=== PATIENT | female | born 1950 | race African-American/Black ===

== ENCOUNTER 2018-04-04 10:58 | Outpatient (CLI) | payer OTHER, MEDICARE | END 2018-04-04 10:59 | disposition home or self-care (01) | LOC: BICMAMMO 10:58 | PROVIDERS: ATTEND Internal Medicine | DX: Z12.31 Encounter for screening mammogram for malignant neoplasm of breast (principal) | CPT/HCPCS: 77063; 77067 ==

== ENCOUNTER 2018-06-11 15:28 | Inpatient (IN) | payer OTHER, MEDICARE ==
[2018-06-11 18:32] LABS: CKMB 1.6 ng/mL (0-6.6)
[2018-06-11 18:51] VITALS: BMI 44.0
[2018-06-11] MEDS ORDERED: Zolpidem Tartrate 5 MG TAB PO PRN (20:49)
[2018-06-11] MEDS ORDERED: cloNIDine 0.1 MG TAB PO PRN (20:49)
[2018-06-11] MEDS ORDERED: Prevnar 13-Val Conj/PF 0.5 ML SYRINGE IM ONE (21:00)
[2018-06-11] MEDS ORDERED: Acetaminophen 325 MG TAB PO PRN (21:08)
[2018-06-11] MEDS ORDERED: Ondansetron ODT 4 MG TAB PO PRN (21:08)
[2018-06-11] MEDS ORDERED: Ondansetron PF 4 MG/2 ML Vial IVP PRN (21:08)
[2018-06-11] MEDS ORDERED: Calcium Carbonate 500 MG ChewTAB PO PRN (21:08)
[2018-06-11] MEDS ORDERED: Nitroglycerin 0.4 MG TAB (25 Tab Bottle) PO PRN (21:08)
[2018-06-11 21:25] LABS: Troponin I 0.051 ng/mL (< 0.028)
[2018-06-11] MEDS ORDERED: Aspirin 325 MG TAB PO SCH (21:30)
--- NOTE | 2018-06-11 21:49 | HP ---
PRIMARY CARE PHYSICIAN: Itzel Diaz MD. PRIMARY BORING MACHINE SET UP OPERATOR JIG: Dr. Juan Diego Leblanc. CHIEF COMPLAINT: Shortness of breath of 1-week duration with intermittent palpitations. HISTORY OF PRESENT ILLNESS: The patient is a 68-year-old female with coronary artery disease, congestive heart failure, and hyperlipidemia, presented to the emergency room in [place] with shortness of breath of 1-week duration. Her shortness of breath is mainly on minimal exertion. The shortness of breath gets worse on lying down. She also noticed some leg swelling. She has episodes of intermittent palpitations that has been getting more frequent. Five days ago, the episode lasted for approximately 20 minutes. She also had associated lightheadedness, dizziness, and almost passed out. She denies complete loss of consciousness. No nausea, vomiting, or diaphoresis reported. She had some chest tightness during the episodes of shortness of breath and palpitations. In the emergency room at [place], initial vital signs showed respirations of 32, pulse rate of 127, blood pressure of 118/77 with temperature of 99.3. She was found to have atrial fibrillation with rapid ventricular response. She was started on Cardizem drip after a 20 mg bolus. She received 80 mg IV Lasix along with aspirin in the emergency room. She was transferred to this facility for hospital admission. PAST MEDICAL HISTORY: 1. Congestive heart failure, systolic type, ejection fraction 25% in the past. 2. Coronary artery disease. 3. AICD placement. 4. Hypertension. 5. Hyperlipidemia. 6. Paroxysmal atrial fibrillation, not on anticoagulation. 7. History of CT. PAST SURGICAL HISTORY: 1. Coronary stent placement. 2. AICD placement. 3. Hysterectomy. 4. Tubal ligation. 5. Cardiac catheterization and cardiac ablation. ALLERGIES: NO KNOWN DRUG ALLERGIES. CURRENT HOME MEDICATIONS: 1. Lipitor 80 mg at bedtime. 2. Carvedilol 25 mg three times a day. 3. Clonidine 0.1 mg daily as needed for elevated blood pressure. 4. Lasix 80 mg twice a day. 5. Potassium chloride twice a day. 6. Ambien as needed. 7. Multivitamin daily. 8. Vitamin D3 daily. Please note, the patient does not take any antiplatelet agent at home. SOCIAL HISTORY: The patient currently lives at home with her family. She denies any current use of smoking, alcohol, or drug use. She is a former smoker. She makes her own decision with the help of her family. She is full code. FAMILY HISTORY: Positive for hypertension. REVIEW OF SYSTEM: All other review of systems was reviewed and were found negative. PHYSICAL EXAMINATION: VITAL SIGNS: As discussed above. GENERAL: A 68-year-old female in mild respiratory distress while resting. HEENT: Head, atraumatic and normocephalic. Sclerae anicteric. Moist mucous membranes. No oral lesion. NECK: Supple. JVD appears to be elevated. No carotid bruit. LUNGS: Showed bibasilar rales with scattered rhonchi. No wheezing noted. HEART: S1 and S2 present. Irregularly irregular, tachycardic, 2/6 systolic murmur over the mitral area. ABDOMEN: Soft, nontender, obese. Bowel sounds present. Questionable shifting dullness. EXTREMITIES: 1 to 2+ edema in bilateral lower extremity. SKIN: Warm and dry. LYMPH NODES: No palpable lymph nodes in the neck. Peripheral vascular radial pulses palpable bilaterally. MUSCULOSKELETAL: No joint swelling or tenderness. LABORATORY FINDINGS: CBC showed WBC 11.4, hemoglobin 12.5, hematocrit 35, and platelet count of 198. D-dimer was 0.74. Troponin of 0.037. BNP 422. BUN 19, creatinine 1.03, sodium 145, and potassium 3.6. CT angiogram of the chest was negative for pulmonary embolism. There was a lobulated 1.8 cm nodule in the base of the right upper lobe. It has grown approximately 0.5 cm over 3 years. There was also a left adrenal mass. EKG by my review showed paced rhythm with tachycardia. Heart rate was in 120s. Chest x-ray by my review showed pulmonary vascular congestion. IMPRESSION: 1. Acute on chronic systolic heart failure exacerbation, probably precipitated by underlying atrial fibrillation with rapid ventricular response, ACC stage C. 2. Coronary artery disease, status post stent placement and myocardial infarction per the patient report. 3. Hypertension. 4. Hyperlipidemia. 5. Morbid obesity with a BMI of 44. 6. Elevated troponin, secondary to demand ischemia. 7. Chronic kidney disease stage 2. 8. Former smoker. 9. Status post automatic implantable cardioverter-defibrillator. PLAN: The patient will be monitored in the telemetry unit. We will continue the patient on Cardizem drip. Her blood pressure is currently on the lower side. We will get serial troponins. Cardiology consultation in a.m. We will get AICD check. Echocardiogram will be done. Anticoagulation was discussed with the patient. She is currently refusing any form of anticoagulation except for aspirin. She understands the consequences of not taking anticoagulation. She will discuss further with Dr. Leblanc in a.m. The patient will require 2 to 3 days for stabilization. Job ID: [id number]
[2018-06-11] MEDS ORDERED: Atorvastatin Calcium 40 MG TAB PO SCH (22:00)
[2018-06-12 05:27] LABS: Albumin 3.5 g/dL (3.4-4.8); Anion Gap 12 mmol/L (10-20); BUN (Urea Nitrogen) 14 mg/dL (9.8-20.1); BUN/Creatinine Ratio 16.28; Calc. Creatinine Clearance 105 mL/min (70-130); Calcium 8.9 mg/dL (7.8-10.44); Carbon Dioxide 29 mmol/L (23-31); Chloride 106 mmol/L (98-107); Estimated GFR-MDRD 79; Glucose 126 mg/dL (80-115); Magnesium 2.1 mg/dL (1.6-2.6); Phosphorus 3.5 mg/dL (2.3-4.7); Potassium 3.1 mmol/L (3.5-5.1); Sodium 144 mmol/L (136-145)
[2018-06-12] MEDS: Furosemide 40 MG/4 ML VIAL SLOW IVP SCH ×2 (05:45→14:32)
[2018-06-12] MEDS: Diltiazem 125 MG in Sodium Chloride 0.9% 100 ML IVPB SCH (05:46)
[2018-06-12] MEDS: Carvedilol 6.25 MG TAB PO SCH ×2 (07:45→17:18)
[2018-06-12] MEDS: Potassium Chloride 20 MEQ TAB PO SCH ×4 (07:45→20:50)
[2018-06-12] MEDS ORDERED: Potassium Chloride 20 MEQ TAB PO SCH (08:00)
[2018-06-12] MEDS: Aspirin 325 MG TAB PO SCH (08:44)
[2018-06-12] MEDS: Multivitamin W/ Minerals 1 TAB PO SCH (08:44)
[2018-06-12] MEDS ORDERED: Enoxaparin Sodium 40 MG/0.4 ML SYRINGE SC SCH (09:00)
--- NOTE | 2018-06-12 12:34 | PDOC.PN ---
- Subjective Encounter Start Date: 06/12/18 Encounter Start Time: 07:30 Patient seen and examined for CHF exacerbation/Afib with RVR. On Cardizem drip. SOB improving. No CP. No new complaints. No overnight events - Objective Resuscitation Status - Order Detail: 06/11/18 21:08 Resuscitation Status Routine Resuscitation Status: FULL: Full Resuscitation MAR Reviewed: Yes Vital Signs & Weight: Vital Signs (12 hours) Temp Pulse Resp BP BP BP Pulse Ox 06/12/18 08:20 96 06/12/18 07:45 111/59 L 06/12/18 07:16 98.4 F 122 H 18 111/59 L 96 06/12/18 04:38 98.1 F 103 H 18 110/62 93 L Weight Weight 241 lb 8 oz I&O: 06/11/18 06/12/18 06/13/18 06:59 06:59 06:59 Intake Total 360 Output Total 1000 750 Balance -640 -750 Result Diagrams: 06/12/18 04:36 EKG Reviewed by me: Yes (Tele Afib) Phys Exam - Physical Examination Constitutional: NAD Respiratory: no wheezing, no rhonchi Rales at bases Cardiovascular: no rub, irregular Gastrointestinal: soft, non-tender, positive bowel sounds Musculoskeletal: edema present Neurological: moves all 4 limbs Psychiatric: A&O x 3 Dx/Plan - Plan DVT proph w/lovenox, DVT proph w/SCDs 1. Acute on chronic systolic heart failure exacerbation/Atrial fibrillation with rapid ventricular response. 2. Coronary artery disease, s/p stent & UT. 3. Hypertension. 4. Hyperlipidemia. 5. Morbid obesity with a BMI of 44. 6. Elevated troponin, secondary to demand ischemia. 7. Chronic kidney disease stage 2. 8. Former smoker. 9. Status post automatic implantable cardioverter-defibrillator. PLAN: AICD check Cont Coreg at 6.25 mg BID Cont Lasix Cont Cardizem drip AM labs Await Echo Cont other meds as below Review of Systems - Review of Systems Constitutional: negative: fever, chills, sweats, weakness, malaise, other Cardiovascular: edema. negative: chest pain, palpitations, orthopnea, paroxysmal nocturnal dyspnea, light headedness, other Gastrointestinal: negative: Nausea, Vomiting, Abdominal Pain, Diarrhea, Constipation, Melena, Hematochezia, Other - Medications/Allergies Allergies/Adverse Reactions: Allergies Allergy/AdvReac Type Severity Reaction Status Date / Time No Known Allergies Allergy Verified 10/26/14 15:41 Medications: Current Medications Acetaminophen (Tylenol) 650 mg PO Q4H PRN PRN Reason: Headache/Fever/Mild Pain (1-3) Aspirin (Aspirin) 325 mg PO DAILY [facility] Last Admin: 06/12/18 08:44 Dose: 325 mg Atorvastatin Calcium (Lipitor) 80 mg PO HS [facility] Last Admin: 06/11/18 21:54 Dose: 80 mg Calcium Carbonate (Tums) 1,000 mg PO Q4H PRN PRN Reason: Heartburn or Indigestion Carvedilol (Coreg) 6.25 mg PO BID-[facility] Last Admin: 06/12/18 07:45 Dose: 6.25 mg Clonidine (Catapres) 0.1 mg PO DAILY PRN PRN Reason: SBP Greater Than 180 Enoxaparin Sodium (Lovenox) 40 mg SC 0900 [facility] Last Admin: 06/12/18 08:44 Dose: 40 mg Furosemide (Lasix) 40 mg SLOW IVP 0600,1400 [facility] Last Admin: 06/12/18 05:45 Dose: 40 mg Diltiazem HCl 125 mg/ Sodium (Chloride) 125 mls @ 2.5 mls/hr IVPB INF [facility]; Protocol Last Admin: 06/12/18 05:46 Dose: 125 mls Iron/Minerals/Multivitamins (Theragran M) 1 tab PO DAILY [facility] Last Admin: 06/12/18 08:44 Dose: 1 tab Nitroglycerin (Nitrostat) 0.4 mg PO Q5MIN PRN PRN Reason: Chest Pain Ondansetron HCl (Zofran Odt) 4 mg PO Q6H PRN PRN Reason: Nausea/Vomiting Ondansetron HCl (Zofran) 4 mg IVP Q6H PRN PRN Reason: Nausea/Vomiting Potassium Chloride (K-Dur) 20 meq PO QID-[facility] Last Admin: 06/12/18 11:46 Dose: 20 meq Sodium Chloride (Flush - Normal Saline) 10 ml IVF Q12HR [facility] Last Admin: 06/12/18 08:45 Dose: 10 ml Sodium Chloride (Flush - Normal Saline) 10 ml IVF PRN PRN PRN Reason: Saline Flush Zolpidem Tartrate (Ambien) 10 mg PO HSPRN PRN PRN Reason: Insomnia
[2018-06-12] MEDS ORDERED: Digoxin 0.5 MG/2 ML AMP SLOW IVP SCH (19:15)
[2018-06-12] MEDS ORDERED: Amiodarone 150 MG, Admixture Fee 1 EACH in Dextrose 5% in Water 100 ML IVPB SCH (19:30)
[2018-06-12] MEDS: Enoxaparin Sodium 120 MG/0.8 ML SYRINGE SC SCH (20:50)
[2018-06-12] MEDS: Atorvastatin Calcium 40 MG TAB PO SCH (20:57)
[2018-06-12] MEDS ORDERED: Atorvastatin Calcium 40 MG TAB PO SCH (21:00)
[2018-06-12] MEDS: Amiodarone 450 MG in Dextrose 5% in Water 250 ML IVPB SCH (21:42)
[2018-06-12 21:53] LABS: Magnesium 2.2 mg/dL (1.6-2.6); Potassium 3.9 mmol/L (3.5-5.1)
[2018-06-12 22:00] LABS: ALT (SGPT) 15 U/L (8-55); AST (SGOT) 16 U/L (5-34); Albumin 3.9 g/dL (3.4-4.8); Alkaline Phosphatase 85 U/L (40-150); Bilirubin, Direct 0.2 mg/dL (0.1-0.3); Bilirubin, Total 0.5 mg/dL (0.2-1.2); Protein, Total 7.5 g/dL (6.0-8.3)
--- NOTE | 2018-06-12 23:57 | CON ---
DATE OF CONSULTATION: HISTORY OF PRESENT ILLNESS: Beatriz Bryan is a pleasant 68-year-old black female, I initially evaluated in July 1990 for atypical chest discomfort. She underwent treadmill testing at [facility] and apparently that treadmill was abnormal. She was then transferred to [facility], underwent catheterization. She had minimal plaquing in the proximal right coronary artery, but otherwise, unremarkable coronary arteries and also normal left ventricular function. I did not see her again until July 2006 when she would have episodes where pulse would "quicken" and she would lose energy and feel her heart beating very rapidly. This lasted approximately 30 minutes. She stated that she had that type of arrhythmias since her 30s. Her sister would count her heartbeat in the past to be approximately 200 per minute. She would have chest pressure with the increased heart rate. With Valsalva maneuver, the tachycardia would stop. She underwent Holter monitoring, which revealed a six-beat run of supraventricular tachycardia with a rate of 136 per minute. An echo revealed ejection fraction of 60% to 65% with mild mitral regurgitation, mild pulmonic regurgitation, mitral annular calcification and trace tricuspid regurgitation. She continued to have tachycardia almost on a daily basis, lasting 1 minute despite being on verapamil. She was referred for electrophysiology study. She was found to have no re-entrant atrial or ventricular tachyarrhythmias. She had nonsustained ectopic atrial tachycardia, left bundle-branch block with aberrancy after atropine and isoproterenol. She was placed on propafenone and symptomatically improved. In June 2007, she was having 2 to 3 episodes lasting 5 seconds for 3 months prior to that visit. In April 2008, she complained of chest pressure across her chest radiating into her arms whenever she tried to walk associated with shortness of breath, which had been occurring for 2 months. She would have her usual palpitations lasting 10 seconds. On EKG, she had left bundle-branch block. She underwent adenosine Cardiolite testing, which was probably normal without definite evidence of ischemia or fixed defect. In May 2008, she continued to have palpitations and underwent another Holter monitor, which did not reveal any evidence of tachycardia. In August 2008, she returned to the office complaining that her heart rate was rapid and that she would have episodes every other day, lasting less than a minute. She had an episode in August 2008, it lasted 20 minutes and she had central chest pressure and right arm pressure, but no shortness of breath. In the office, she was found to have supraventricular tachycardia with the rate of 147 per minute with left bundle-branch block pattern. She was hospitalized, placed on Cardizem drip. She had only been taking the propafenone 150 mg b.i.d. and not t.i.d. LDL was also 170 and Lipitor was started. She was seen by Dr. Romulo Diaz, for consideration of ablation. She was not seen again until July 2010. With walking, she would have right arm and chest discomfort lasting 5 to 10 minutes, relieved with rest. Echo revealed severe left ventricular dysfunction with ejection fraction of 20% to 25% with septal wall dyskinesis, moderate mitral regurgitation, mitral annular calcification, diastolic dysfunction, and mild tricuspid regurgitation. This is a dramatic change from her previous echo in May 2008. At that time, her ejection fraction was 60% to 65%. Verapamil was discontinued, she was placed on metoprolol 100 daily. She underwent Lexiscan Cardiolite testing, which revealed evidence of moderate fixed defect in the proximal and distal inferior wall and mild fixed defect in the anterior wall, but no evidence of ischemia. After changing to metoprolol, she had decreased frequency of her episodes of chest discomfort and would require more exertion before she would have the discomfort, but still with walking or sweeping the floor, she would have right chest, right shoulder discomfort, lasting 20 minutes almost daily. It is recommended she undergo catheterization. She was found to have severe left ventricular dysfunction with ejection fraction of 20% to 25%. There was a 40% to 50% mid LAD, 30% and 70% proximal stenosis with ejection fraction of 20% to 25%. There was a 40% to 50% mid LAD stenosis. The circumflex had a 30% and 70% proximal stenosis and an 80% mid stenosis. Right coronary artery was small with a 20% proximal stenosis, 60% mid stenosis. She underwent placement of a PROMUS 3.0 x 20 mm stent, 3.0 x 28 and 3.0 x 8 from the proximal to the mid circumflex. With balloon inflation, she had recurrence of her chest and right arm and shoulder discomfort like she had been having at home. Her LDL was 142, and she again was started on Lipitor, which she had been previously taking, but stopped. With the left ventricular dysfunction, it is felt that propafenone for her atrial tachycardia needed to be discontinued. She was seen by Dr. Samaniego and loaded with amiodarone. During that hospitalization, metoprolol was changed to carvedilol. Hydrochlorothiazide was discontinued and she was placed on furosemide with improvement in her lower extremity edema. In October and December 2010, she was seen in the office. Echo in December 2010 revealed ejection fraction of 15% to 20%. She was referred to [facility] for a biventricular ICD. In January 2011, she presented to the emergency room in [place] with increased respiratory distress and worsening shortness of breath for one week prior to that. PH was 7.29, pCO2 57.4, pO2 89.3. She was sedated, intubated, and transferred. She had undergone chest CT, which revealed no pulmonary embolism. However, did have evidence of pulmonary edema and bilateral lower lobe consolidation probably representing pneumonia. She was diuresed and eventually extubated. She underwent placement of a biventricular ICD. She was ultimately discharged after only 6 days. In December 2011, she was seen in the office and stated that she had been noncompliant with the evening Lasix dose at least 2 times per week. At that time, her blood pressure was 150-160 systolic at home. Carvedilol dose was increased. She was admitted in December 2011 with disorientation and increased shortness of breath. Blood pressure was between 200 and 250 when she arrived at the [place] [facility]. Topical nitrates were placed; pH was 7.24, pCO2 76, pO2 456. CPAP was placed. It appeared that she had flash pulmonary edema. Cardiac enzymes were unremarkable. Echo revealed ejection fraction of 20% to 25% with evidence for diastolic dysfunction, left ventricular enlargement, defibrillator wire on the right side of the heart, moderate tricuspid regurgitation, moderate mitral regurgitation. She underwent cardiac catheterization, which revealed severe left ventricular dysfunction with ejection fraction of 20% to 25%. There was a 30% mid LAD and continued to have excellent results from the stents placed in the circumflex. There was a 20% proximal circumflex lesion before the stents. Right coronary was small with 20% proximal lesion, 60% and 70% mid lesions. Renal arteries revealed 30% stenosis. She had dual left renal artery, both of which had approximately 20% stenosis. It was felt that the flash pulmonary edema was probably due to her [id number] hypertension. Carvedilol dose was gradually increased. She was diuresed. She had a cough, which may have been due to lisinopril. ICD continued to function normally at that time. She has been followed in the office with gradual improvement in her left ventricular function over time with biventricular pacing. In October 2013, she was admitted with increased shortness of breath after eating a lot of salt, drinking a lot of fluid on the day of admission. Cardiac enzymes were unremarkable. She has not been hospitalized here since that time. She has continued to be followed here in the office with gradual improvement in her ejection fraction. Her last echocardiogram was in January 2018. She had ejection fraction of 55% to 60% with mild left atrial enlargement, ICD wire in the right ventricle, mild mitral regurgitation, mitral valve inflow pattern consistent with diastolic dysfunction, aortic valvular sclerosis and mild tricuspid regurgitation. She states that recently her blood pressure has been low and Dr. Diaz has discontinued the Diovan and also carvedilol was reduced from 50 mg b.i.d. to 25 mg t.i.d. She then began to notice on June 06 that showed increasing shortness of breath and would feel her heart beating very rapidly. She ultimately came to the emergency room, was found to be in atrial fibrillation, had been placed on a Cardizem drip, but continues to have fast rates. She denied any chest discomfort. PAST MEDICAL HISTORY: Hypertension, hypercholesterolemia (very noncompliant with statins in the past and she is now very noncompliant with the Zetia), diastolic dysfunction. No history of diabetes. MEDICATIONS: 1. Carvedilol 25 mg t.i.d. 2. Atorvastatin 80 at bedtime. 3. Clonidine 0.1 mg p.r.n. 4. Lasix 80 mg b.i.d. 5. Multivitamin daily. 6. KCl 20 mEq daily. 7. Ambien 10 mg at bedtime p.r.n. ALLERGIES: NONE. PAST SURGICAL HISTORY: Operation; ICD placement. SOCIAL HISTORY: Short-term mcc in the past. She rarely drinks alcohol. She smoked in the past. FAMILY HISTORY: Father had myocardial infarction at age 68. REVIEW OF SYSTEMS: A 12-point review of systems unremarkable except as noted above. PHYSICAL EXAMINATION: VITAL SIGNS: Blood pressure 129/58, pulse of 127. HEENT: PERRL. NECK: Supple. CHEST: Clear. CARDIAC: S1 and S2 normal without any S3, S4, or murmurs. The rhythm is irregularly irregular with fast rate. ABDOMEN: Obese. Normal bowel sounds without tenderness or organomegaly. EXTREMITIES: Revealed no clubbing, cyanosis, or edema. NEUROLOGICAL: Grossly intact. SKIN: Warm and dry. LABORATORY DATA: EKG reveals atrial fibrillation with occasional paced beats. Chest x-ray revealed mild congestive heart failure. She underwent CT angiogram of the thorax, which revealed no evidence of pulmonary embolism. Hemoglobin 12.5, hematocrit 35.0, white count 11,400, platelets 198,000. She has always had low red blood cell indices. D-dimer 0.74. Troponin I is up to 0.051. TSH is normal. BNP 422.2. Sodium 144, potassium 3.1, chloride 106, carbon dioxide 29, BUN 14, creatinine 0.86. Echocardiogram revealed ejection fraction of 35% to 40% with ICD wire in the right ventricle, mild left atrial enlargement, moderate mitral regurgitation, aortic valvular sclerosis and severe tricuspid regurgitation. IMPRESSION: 1. Recurrence of atrial fibrillation. She had been on amiodarone in the past; however, this was stopped 3 or 4 years ago. 2. Hypotension recently with Diovan being discontinued and carvedilol dose being reduced. 3. Ischemic cardiomyopathy with ejection fraction improving from 20% to 25% to 55% to 60% with biventricular pacing. 4. Status post biventricular ICD placement. 5. Coronary artery disease, status post stent placement to the right coronary artery in September 2010. 6. Diastolic dysfunction. 7. Hypertension. 8. Hypercholesterolemia with the patient noncompliant with Zetia. 9. Former smoker. 10. Peripheral vascular disease. 11. Hyperglycemia. PLAN: Situation discussed with the patient. She will be given intravenous digoxin to slow her rate as well as being started on intravenous amiodarone. Lovenox 1 mg/kg b.i.d. will probably be started and she will eventually be transitioned to oral anticoagulants. The main problem that she has right now is that her rate is faster than a programmed rate of the pacemaker and so she has not received the benefits of biventricular pacing when she is in atrial fibrillation with this fast rate. The rate will be slowed and hopefully, she will return to sinus rhythm. Job ID: [id number]
[2018-06-13] MEDS ORDERED: Digoxin 0.5 MG/2 ML AMP SLOW IVP SCH ×2 (02:00→19:15)
[2018-06-13 06:00] LABS: Albumin 3.8 g/dL (3.4-4.8); Anion Gap 10 mmol/L (10-20); BUN (Urea Nitrogen) 13 mg/dL (9.8-20.1); BUN/Creatinine Ratio 13.54; Calc. Creatinine Clearance 94 mL/min (70-130); Calcium 9.4 mg/dL (7.8-10.44); Carbon Dioxide 30 mmol/L (23-31); Cardiac Risk 4.3 (Less than 4.5); Chloride 105 mmol/L (98-107); Cholesterol 158 mg/dl (< 200 Desired); Estimated GFR-MDRD 70; Glucose 129 mg/dL (80-115); HDL Cholesterol 37 mg/dL (>60 Neg Risk); Iron 25 ug/dL (50-170); Iron Binding Capacity, Total 208 mcg/dL (265-497); LDL Cholesterol, Calculated 104 mg/dL; Magnesium 2.2 mg/dL (1.6-2.6); Phosphorus 3.5 mg/dL (2.3-4.7); Potassium 3.9 mmol/L (3.5-5.1); Sodium 141 mmol/L (136-145); Triglycerides 85 mg/dL (Less than 150)
[2018-06-13 06:07] LABS: #Basophils 0.1 thou/uL (0.0-0.2); #Eosinphils 0.2 thou/uL (0.0-0.7); #Lymphocytes 2.1 thou/uL (1.20-3.40); #Monocytes 1.1 thou/uL (0.11-0.59); #Neutrophils 10.6 thou/uL (1.40-6.50); %Basophils 0.4 % (0.0-1.0); %Eosinophils 1.2 % (0.0-10.0); %Monocytes 7.9 % (0.0-10.0); %Neutrophils 75.4 % (42.0-75.0); Hemoglobin 12.8 g/dL (12.0-16.0); MDiff Complete? YES; Mean Corpuscular HGB CONC 33.1 g/dL (32.0-36.0); Mean Corpuscular Hemoglobin 24.4 pg (27.0-31.0); Mean Corpuscular Volume 73.8 fL (78.0-98.0); Mean Platelet Volume 10.2 fL (7.4-10.4); Microcytosis SLIGHT = 6-15 cells (100X) (0-5/hpf); Platelet Count 198 thou/uL (130-400); RBC Distribution Width 15.1 % (11.5-14.5); Red Blood Cell (RBC) Count 5.24 mill/uL (4.20-5.40)
[2018-06-13] MEDS: Furosemide 40 MG/4 ML VIAL SLOW IVP SCH ×2 (06:19→14:11)
[2018-06-13] MEDS: Amiodarone 450 MG in Dextrose 5% in Water 250 ML IVPB SCH (08:05)
[2018-06-13] MEDS: Carvedilol 6.25 MG TAB PO SCH ×2 (08:07→17:43)
[2018-06-13] MEDS: Aspirin 325 MG TAB PO SCH (08:07)
[2018-06-13] MEDS: Multivitamin W/ Minerals 1 TAB PO SCH (08:07)
[2018-06-13] MEDS: Potassium Chloride 20 MEQ TAB PO SCH ×4 (08:07→20:51)
[2018-06-13] MEDS: Enoxaparin Sodium 120 MG/0.8 ML SYRINGE SC SCH (08:07)
--- NOTE | 2018-06-13 19:20 | PDOC.PN ---
- Subjective Encounter Start Date: 06/13/18 Encounter Start Time: 09:30 - Objective Resuscitation Status - Order Detail: 06/11/18 21:08 Resuscitation Status Routine Resuscitation Status: FULL: Full Resuscitation MAR Reviewed: Yes Vital Signs & Weight: Vital Signs (12 hours) Temp Pulse Resp BP BP BP Pulse Ox 06/13/18 17:43 159/71 H 06/13/18 16:00 98.9 F 119 H 19 141/84 H 93 L 06/13/18 12:00 99.4 F 103 H 18 138/63 93 L 06/13/18 08:07 159/71 H 06/13/18 08:00 99.7 F H 114 H 18 159/71 H 93 L Weight Weight 235 lb 14.4 oz I&O: 06/12/18 06/13/18 06/14/18 06:59 06:59 06:59 Intake Total 360 650 480 Output Total 1000 1650 Balance -640 -1000 480 Result Diagrams: 06/13/18 05:27 06/13/18 05:27 EKG Reviewed by me: Yes (Tele Paced/Afib with RVR) Phys Exam - Physical Examination Constitutional: NAD Respiratory: no wheezing, no rhonchi Cardiovascular: no rub, irregular Gastrointestinal: soft, non-tender, positive bowel sounds Musculoskeletal: edema present Neurological: moves all 4 limbs Dx/Plan - Plan DVT proph w/lovenox, DVT proph w/SCDs 1. Acute on chronic systolic heart failure exacerbation/Atrial fibrillation with rapid ventricular response. 2. Coronary artery disease, s/p stent & [place]. 3. Hypertension. 4. Hyperlipidemia. 5. Morbid obesity with a BMI of 44. 6. Elevated troponin, secondary to demand ischemia. 7. Chronic kidney disease stage 2. 8. Former smoker. 9. Status post AICD. PLAN: On Cardizem/Amiodarone drip Cont Coreg at 6.25 mg BID Cont Digoxin Cont IV Lasix Cont Cardizem drip AM labs On Anticoag - Patient understands the risk associated with anticoagulation Cont other meds as below Review of Systems - Review of Systems Respiratory: negative: Cough, Dry, Shortness of Breath, Hemoptysis, SOB with Excertion, Pleuritic Pain, Sputum, Wheezing Cardiovascular: negative: chest pain, palpitations, orthopnea, paroxysmal nocturnal dyspnea, edema, light headedness, other Gastrointestinal: negative: Nausea, Vomiting, Abdominal Pain, Diarrhea, Constipation, Melena, Hematochezia, Other - Medications/Allergies Allergies/Adverse Reactions: Allergies Allergy/AdvReac Type Severity Reaction Status Date / Time No Known Allergies Allergy Verified 10/26/14 15:41 Medications: Current Medications Acetaminophen (Tylenol) 650 mg PO Q4H PRN PRN Reason: Headache/Fever/Mild Pain (1-3) Last Admin: 06/12/18 17:42 Dose: 650 mg Apixaban (Eliquis) 5 mg PO BID [facility] Aspirin (Ecotrin) 81 mg PO DAILY [facility] Atorvastatin Calcium (Lipitor) 80 mg PO [facility] Last Admin: 06/12/18 20:57 Dose: 80 mg Calcium Carbonate (Tums) 1,000 mg PO Q4H PRN PRN Reason: Heartburn or Indigestion Carvedilol (Coreg) 6.25 mg PO BID-[facility] Last Admin: 06/13/18 17:43 Dose: 6.25 mg Clonidine (Catapres) 0.1 mg PO DAILY PRN PRN Reason: SBP Greater Than 180 Digoxin (Lanoxin) 0.25 mg SLOW IVP NOW [facility] Stop: 06/13/18 21:15 Digoxin (Lanoxin) 0.25 mg PO DAILY [facility] Enoxaparin Sodium (Lovenox) 110 mg SC 0900,2100 [facility] Stop: 06/13/18 23:59 Furosemide (Lasix) 40 mg SLOW IVP 0600,1400 [facility] Last Admin: 06/13/18 14:11 Dose: 40 mg Diltiazem HCl 125 mg/ Sodium (Chloride) 125 mls @ 2.5 mls/hr IVPB INF [facility]; Protocol Last Admin: 06/12/18 05:46 Dose: 125 mls Amiodarone HCl 450 mg/ (Dextrose/Water) 259 mls @ 0 mls/hr IVPB INF [facility]; Protocol Last Admin: 06/13/18 08:05 Dose: 16.7 mls Iron/Minerals/Multivitamins (Theragran M) 1 tab PO DAILY [facility] Last Admin: 06/13/18 08:07 Dose: 1 tab Nitroglycerin (Nitrostat) 0.4 mg PO Q5MIN PRN PRN Reason: Chest Pain Ondansetron HCl (Zofran Odt) 4 mg PO Q6H PRN PRN Reason: Nausea/Vomiting Ondansetron HCl (Zofran) 4 mg IVP Q6H PRN PRN Reason: Nausea/Vomiting Potassium Chloride (K-Dur) 20 meq PO QID-[facility] Last Admin: 06/13/18 17:43 Dose: 20 meq Sodium Chloride (Flush - Normal Saline) 10 ml IVF Q12HR [facility] Last Admin: 06/13/18 10:36 Dose: Not Given Sodium Chloride (Flush - Normal Saline) 10 ml IVF PRN PRN PRN Reason: Saline Flush Zolpidem Tartrate (Ambien) 10 mg PO HSPRN PRN PRN Reason: Insomnia
[2018-06-13] MEDS: Atorvastatin Calcium 40 MG TAB PO SCH (20:51)
[2018-06-13] MEDS: Apixaban 5 MG TAB PO SCH (20:52)
[2018-06-13] MEDS ORDERED: Enoxaparin Sodium 120 MG/0.8 ML SYRINGE SC SCH (21:00)
[2018-06-14] MEDS: Amiodarone 450 MG in Dextrose 5% in Water 250 ML IVPB SCH ×2 (00:34→18:09)
[2018-06-14] MEDS: Furosemide 40 MG/4 ML VIAL SLOW IVP SCH ×2 (05:32→14:34)
[2018-06-14 06:55] LABS: Hemoglobin 13.7 g/dL (12.0-16.0); Platelet Count 229 thou/uL (130-400)
[2018-06-14 07:17] LABS: Albumin 4.1 g/dL (3.4-4.8); Anion Gap 15 mmol/L (10-20); BUN (Urea Nitrogen) 14 mg/dL (9.8-20.1); BUN/Creatinine Ratio 13.21; Calc. Creatinine Clearance 82 mL/min (70-130); Calcium 9.7 mg/dL (7.8-10.44); Carbon Dioxide 27 mmol/L (23-31); Chloride 106 mmol/L (98-107); Estimated GFR-MDRD 62; Glucose 126 mg/dL (80-115); Magnesium 2.3 mg/dL (1.6-2.6); Phosphorus 3.3 mg/dL (2.3-4.7); Potassium 3.9 mmol/L (3.5-5.1); Sodium 144 mmol/L (136-145)
[2018-06-14] MEDS: Multivitamin W/ Minerals 1 TAB PO SCH (08:16)
[2018-06-14] MEDS: Aspirin 81 mg Enteric Coated Tablet PO SCH (08:16)
[2018-06-14] MEDS: Apixaban 5 MG TAB PO SCH ×2 (08:16→19:55)
[2018-06-14] MEDS: Carvedilol 6.25 MG TAB PO SCH ×2 (08:16→16:15)
[2018-06-14] MEDS: Potassium Chloride 20 MEQ TAB PO SCH ×4 (08:16→19:55)
[2018-06-14] MEDS: Digoxin 0.25 MG TAB PO SCH (08:16)
--- NOTE | 2018-06-14 13:30 | PDOC.PN ---
- Subjective Encounter Start Date: 06/14/18 Encounter Start Time: 10:00 Patient seen and examined for CHF. On Amiodarone/Cardizem drip. SOB improving. Intermittent palpitations. No new complaints. No overnight events - Objective Resuscitation Status - Order Detail: 06/11/18 21:08 Resuscitation Status Routine Resuscitation Status: FULL: Full Resuscitation MAR Reviewed: Yes Vital Signs & Weight: Vital Signs (12 hours) Temp Pulse Pulse Pulse Resp BP BP 06/14/18 11:59 97.5 F L 121 H 19 06/14/18 10:18 99 124 H 166/73 H 117/67 06/14/18 08:16 06/14/18 07:08 98.2 F 113 H 17 06/14/18 04:00 98.2 F 113 H 20 BP BP Pulse Ox Pulse Ox Pulse Ox 06/14/18 11:59 142/72 H 95 06/14/18 10:18 95 98 06/14/18 08:16 95 06/14/18 07:08 146/81 H 95 06/14/18 04:00 156/74 H 94 L Weight Weight 230 lb 14.4 oz I&O: 06/13/18 06/14/18 06/15/18 06:59 06:59 06:59 Intake Total 650 830.4 Output Total 1650 1000 Balance -1000 -169.6 Result Diagrams: 06/14/18 06:17 06/14/18 06:17 EKG Reviewed by me: Yes (Tele Aflutter) Phys Exam - Physical Examination Constitutional: NAD Respiratory: no wheezing, no rhonchi few rales at bases Cardiovascular: no rub, irregular Gastrointestinal: soft, non-tender, positive bowel sounds Musculoskeletal: edema present (improving) Neurological: non-focal, moves all 4 limbs Psychiatric: A&O x 3 Dx/Plan - Plan 1. Acute on chronic systolic heart failure exacerbation/Atrial flutter-fib with RVR. 2. Coronary artery disease, s/p stent & [place] in the past. 3. Hypertension. 4. Hyperlipidemia. 5. Morbid obesity with a BMI of 44. 6. Elevated troponin, secondary to demand ischemia. 7. Chronic kidney disease stage 2. 8. Former smoker. 9. Status post AICD. PLAN: Cont Cardizem/Amiodarone drip On Eliquis Cont Coreg/Digoxin Cont IV Lasix Cont other medications as below AM labs Review of Systems - Review of Systems Respiratory: negative: Cough, Dry, Shortness of Breath, Hemoptysis, SOB with Excertion, Pleuritic Pain, Sputum, Wheezing Cardiovascular: negative: chest pain, palpitations, orthopnea, paroxysmal nocturnal dyspnea, edema, light headedness, other - Medications/Allergies Allergies/Adverse Reactions: Allergies Allergy/AdvReac Type Severity Reaction Status Date / Time No Known Allergies Allergy Verified 10/26/14 15:41 Medications: Current Medications Acetaminophen (Tylenol) 650 mg PO Q4H PRN PRN Reason: Headache/Fever/Mild Pain (1-3) Last Admin: 06/12/18 17:42 Dose: 650 mg Apixaban (Eliquis) 5 mg PO BID [facility] Last Admin: 06/14/18 08:16 Dose: 5 mg Aspirin (Ecotrin) 81 mg PO DAILY [facility] Last Admin: 06/14/18 08:16 Dose: 81 mg Atorvastatin Calcium (Lipitor) 80 mg PO HS [facility] Last Admin: 06/13/18 20:51 Dose: 80 mg Calcium Carbonate (Tums) 1,000 mg PO Q4H PRN PRN Reason: Heartburn or Indigestion Carvedilol (Coreg) 6.25 mg PO BID-[facility] Last Admin: 06/14/18 08:16 Dose: 6.25 mg Clonidine (Catapres) 0.1 mg PO DAILY PRN PRN Reason: SBP Greater Than 180 Digoxin (Lanoxin) 0.25 mg PO DAILY [facility] Last Admin: 06/14/18 08:16 Dose: 0.25 mg Furosemide (Lasix) 40 mg SLOW IVP 0600,1400 [facility] Last Admin: 06/14/18 05:32 Dose: 40 mg Diltiazem HCl 125 mg/ Sodium (Chloride) 125 mls @ 2.5 mls/hr IVPB INF [facility]; Protocol Last Admin: 06/12/18 05:46 Dose: 125 mls Amiodarone HCl 450 mg/ (Dextrose/Water) 259 mls @ 0 mls/hr IVPB INF [facility]; Protocol Last Admin: 06/14/18 00:34 Dose: 259 mls Iron/Minerals/Multivitamins (Theragran M) 1 tab PO DAILY [facility] Last Admin: 06/14/18 08:16 Dose: 1 tab Nitroglycerin (Nitrostat) 0.4 mg PO Q5MIN PRN PRN Reason: Chest Pain Ondansetron HCl (Zofran Odt) 4 mg PO Q6H PRN PRN Reason: Nausea/Vomiting Ondansetron HCl (Zofran) 4 mg IVP Q6H PRN PRN Reason: Nausea/Vomiting Potassium Chloride (K-Dur) 20 meq PO QID-[facility] Last Admin: 06/14/18 12:02 Dose: 20 meq Sodium Chloride (Flush - Normal Saline) 10 ml IVF Q12HR [facility] Last Admin: 06/14/18 08:17 Dose: Not Given Sodium Chloride (Flush - Normal Saline) 10 ml IVF PRN PRN PRN Reason: Saline Flush Zolpidem Tartrate (Ambien) 10 mg PO HSPRN PRN PRN Reason: Insomnia
[2018-06-14] MEDS: Diltiazem 125 MG in Sodium Chloride 0.9% 100 ML IVPB SCH (17:03)
[2018-06-14] MEDS: Atorvastatin Calcium 40 MG TAB PO SCH (19:55)
[2018-06-15] MEDS: Carvedilol 6.25 MG TAB PO SCH ×2 (05:42→16:43)
[2018-06-15] MEDS: Potassium Chloride 20 MEQ TAB PO SCH ×4 (05:42→19:51)
[2018-06-15] MEDS: Apixaban 5 MG TAB PO SCH ×2 (05:42→19:51)
[2018-06-15] MEDS: Aspirin 81 mg Enteric Coated Tablet PO SCH (05:42)
[2018-06-15] MEDS: Digoxin 0.25 MG TAB PO SCH (05:42)
[2018-06-15] MEDS: Furosemide 40 MG/4 ML VIAL SLOW IVP SCH ×2 (05:43→13:21)
[2018-06-15] MEDS: Multivitamin W/ Minerals 1 TAB PO SCH (05:43)
[2018-06-15 05:44] LABS: Anion Gap 14 mmol/L (10-20); BUN (Urea Nitrogen) 18 mg/dL (9.8-20.1); Calc. Creatinine Clearance 77 mL/min (70-130); Calcium 9.7 mg/dL (7.8-10.44); Carbon Dioxide 25 mmol/L (23-31); Chloride 109 mmol/L (98-107); Digoxin 1.28 ng/mL (0.8-2.0); Estimated GFR-MDRD 58; Glucose 117 mg/dL (80-115); Potassium 4.5 mmol/L (3.5-5.1); Sodium 143 mmol/L (136-145)
[2018-06-15] MEDS ORDERED: PROPOFOL 20 ML ONE (10:58)
[2018-06-15] MEDS ORDERED: Amiodarone 200 MG TAB PO SCH (12:30)
[2018-06-15] MEDS: Amiodarone 450 MG in Dextrose 5% in Water 250 ML IVPB SCH (13:54)
[2018-06-15] MEDS: Amiodarone 200 MG TAB PO SCH (19:51)
[2018-06-15] MEDS: Atorvastatin Calcium 40 MG TAB PO SCH (19:51)
--- NOTE | 2018-06-15 21:50 | ECHO ---
This is a 68-year-old woman with paroxysmal atrial fibrillation and a cardiomyopathy. DESCRIPTION OF PROCEDURE: The patient was taken to the PACU. The patient was sedated by anesthesiology. A transesophageal pro be was placed into the distal esophagus and stomach. Echocardiographic images were obtained. The tr ansesophageal probe was removed. FINDINGS: 1. Decreased left ventricular systolic function. 2. The aortic valve leaflets are thickened with an echogenic mass suggestive of a possible vegetatio n. 3. Normal mitral valve leaflets. 4. Mild mitral regurgitation. 5. Moderate tricuspid regurgitation. 6. Defibrillator wire was noted in the right ventricle with echogenic masses suggestive of a fibrino us strands or old vegetations. 7. Spontaneous contour is noted in the left atrium 8. No formed thrombus in atrium or left atrial appendage. IMPRESSION: No formed thrombus in the left atrial or left atrial appendage with possible vegetation on the aortic valve and defibrillator wires.
--- NOTE | 2018-06-15 22:01 | OP ---
PROCEDURE: Cardioversion. The patient remained sedated after transesophageal echo revealed no intracardiac thrombus. Upon interrogation of the ICD, she was biventricular pacing; however, the atrial rate was approximately 230 per minute. With 200 joules she returned to A-pacing/V-pacing. Patient tolerated the procedure well. GARTH
--- NOTE | 2018-06-15 22:46 | PDOC.PN ---
- Subjective Encounter Start Date: 06/15/18 Encounter Start Time: 14:00 Patient seen and examined for CHF/Afib with RVR. s/p CV. No new complaints. No overnight events - Objective Resuscitation Status - Order Detail: 06/11/18 21:08 Resuscitation Status Routine Resuscitation Status: FULL: Full Resuscitation MAR Reviewed: Yes Vital Signs & Weight: Vital Signs (12 hours) Temp Pulse Resp BP BP Pulse Ox 06/15/18 20:16 92 L 06/15/18 19:57 99.1 F 70 14 116/54 L 92 L 06/15/18 16:00 97.7 F 71 16 136/63 96 06/15/18 12:28 98.2 F 65 20 149/64 H 93 L Weight Weight 233 lb 6.4 oz I&O: 06/14/18 06/15/18 06/16/18 06:59 06:59 06:59 Intake Total 830.4 Output Total 1000 Balance -169.6 Result Diagrams: 06/14/18 06:17 06/15/18 05:07 EKG Reviewed by me: Yes (Tele paced) Phys Exam - Physical Examination Constitutional: NAD Respiratory: no wheezing, no rhonchi Cardiovascular: RRR, no rub Gastrointestinal: soft, non-tender, positive bowel sounds Neurological: moves all 4 limbs Dx/Plan - Plan 1. Acute on chronic systolic heart failure exacerbation/Atrial flutter-fib with RVR s/p CV 06/15 2. Coronary artery disease, s/p stent & [place] in the past. 3. Hypertension. 4. Hyperlipidemia. 5. Morbid obesity with a BMI of 44. 6. Elevated troponin, secondary to demand ischemia. 7. Chronic kidney disease stage 2. 8. Former smoker. 9. Status post AICD. PLAN: Cont Amiodarone drip On Eliquis/Coreg/Digoxin Cont IV Lasix DC PO Potassium AM labs Cont current medications as below Review of Systems - Review of Systems Respiratory: negative: Cough, Dry, Shortness of Breath, Hemoptysis, SOB with Excertion, Pleuritic Pain, Sputum, Wheezing Cardiovascular: negative: chest pain, palpitations, orthopnea, paroxysmal nocturnal dyspnea, edema, light headedness, other - Medications/Allergies Allergies/Adverse Reactions: Allergies Allergy/AdvReac Type Severity Reaction Status Date / Time No Known Allergies Allergy Verified 10/26/14 15:41 Medications: Current Medications Acetaminophen (Tylenol) 650 mg PO Q4H PRN PRN Reason: Headache/Fever/Mild Pain (1-3) Last Admin: 06/12/18 17:42 Dose: 650 mg Amiodarone HCl (Cordarone) 400 mg PO BID [facility] Last Admin: 06/15/18 19:51 Dose: 400 mg Apixaban (Eliquis) 5 mg PO BID [facility] Last Admin: 06/15/18 19:51 Dose: 5 mg Aspirin (Ecotrin) 81 mg PO DAILY [facility] Last Admin: 06/15/18 05:42 Dose: 81 mg Atorvastatin Calcium (Lipitor) 80 mg PO HS [facility] Last Admin: 06/15/18 19:51 Dose: 80 mg Calcium Carbonate (Tums) 1,000 mg PO Q4H PRN PRN Reason: Heartburn or Indigestion Carvedilol (Coreg) 12.5 mg PO BID-[facility] Clonidine (Catapres) 0.1 mg PO DAILY PRN PRN Reason: SBP Greater Than 180 Digoxin (Lanoxin) 0.25 mg PO DAILY [facility] Last Admin: 06/15/18 05:42 Dose: 0.25 mg Furosemide (Lasix) 40 mg SLOW IVP 0600,1400 [facility] Last Admin: 06/15/18 13:21 Dose: 40 mg Iron/Minerals/Multivitamins (Theragran M) 1 tab PO DAILY [facility] Last Admin: 06/15/18 05:43 Dose: 1 tab Nitroglycerin (Nitrostat) 0.4 mg PO Q5MIN PRN PRN Reason: Chest Pain Ondansetron HCl (Zofran Odt) 4 mg PO Q6H PRN PRN Reason: Nausea/Vomiting Ondansetron HCl (Zofran) 4 mg IVP Q6H PRN PRN Reason: Nausea/Vomiting Potassium Chloride (K-Dur) 20 meq PO QID-[facility] Last Admin: 06/15/18 19:51 Dose: 20 meq Sodium Chloride (Flush - Normal Saline) 10 ml IVF Q12HR [facility] Last Admin: 06/15/18 19:51 Dose: 10 ml Sodium Chloride (Flush - Normal Saline) 10 ml IVF PRN PRN PRN Reason: Saline Flush Valsartan (Diovan) 80 mg PO DAILY [facility] Zolpidem Tartrate (Ambien) 10 mg PO HSPRN PRN PRN Reason: Insomnia
[2018-06-16] MEDS: Furosemide 40 MG/4 ML VIAL SLOW IVP SCH ×2 (05:26→14:34)
[2018-06-16] MEDS ORDERED: Valsartan 80 MG TAB PO SCH (09:00)
[2018-06-16] MEDS: Apixaban 5 MG TAB PO SCH (09:06)
[2018-06-16] MEDS: Carvedilol 6.25 MG TAB PO SCH ×2 (09:06→16:39)
[2018-06-16] MEDS: Digoxin 0.25 MG TAB PO SCH (09:06)
[2018-06-16] MEDS: Multivitamin W/ Minerals 1 TAB PO SCH (09:07)
[2018-06-16] MEDS: Amiodarone 200 MG TAB PO SCH (09:07)
[2018-06-16] MEDS: Aspirin 81 mg Enteric Coated Tablet PO SCH (09:07)
[2018-06-16 16:57] VITALS: BP 156/70; TEMP 98
--- NOTE | 2018-06-17 15:01 | DIS ---
DATE OF ADMISSION: 06/11/2018 DATE OF DISCHARGE: 06/16/2018 PRIMARY CARE PHYSICIAN: Itzel Diaz MD. PRIMARY FACILITY WORKER: Juan Diego Leblanc MD CHIEF COMPLAINT/REASON FOR ADMISSION: Worsening dyspnea for the last 1 week as well as intermittent palpitation. PRINCIPAL DIAGNOSIS ON ADMISSION: Acute on chronic systolic congestive heart failure, secondary to underlying atrial fibrillation with rapid ventricular response. DISCHARGE DIAGNOSES: 1. Acute on chronic systolic congestive heart failure, with acute exacerbation, secondary to paroxsymal atrial fibrillation with rapid ventricular response. 2. Atrial fibrillation, paroxysmal with rapid ventricular response. 3. Coronary artery disease, status post previous stent/myocardial infarction. 4. Essential hypertension. 5. Dyslipidemia. 6. Morbid obesity with BMI of 44. 7. Elevated troponin, secondary to demand ischemia. 8. Chronic kidney disease, stage 2. 9. Former tobacco use. 10. Status post previous automatic implantable cardioverter-defibrillator. PROCEDURES DURING HOSPITAL STAY: A transesophageal echocardiogram and cardioversion on 06/15/2018. On this study, interrogation of ICD also performed, biventricular pacing intact, atrial rate approximately 230 beats per minute. With 200 joules, she returned A-pacing/V-pacing mode, tolerated the procedure well. HOSPITAL COURSE: Ms. Bryan is a delightful 68-year-old female, admitted on 06/11/2018, for worsening fluid retention, leaking, worsening dyspnea on exertion. She received diuretic therapy with total weight loss in the hospital was 11 pounds. She underwent Cardiology evaluation as well, noted to have paroxysmal atrial fibrillation. Started on anticoagulation with Eliquis, and underwent DAVE/cardioversion . At the time of discharge, she is synchronously paced. She is feeling much improved. Medication adjustments noted. During the hospital stay include downward titration of beta-ronny, presently at 12.5 mg p.o. twice daily of Coreg. At home, she had previously been taking 25 mg p.o. t.i.d. She will continue to monitor her blood pressures at home. She has had readings more recently that had been on the low side. She will likely need ongoing upward titration back to baseline, which can be done slowly over time. Additionally, she will restart Diovan, low dose. Additionally, amiodarone was initiated during her hospital stay and will be continued for the short term. I have asked her to see Dr. Leblanc in the office in the next 1 to 2 weeks for ongoing medication evaluation and followup. She has been initiated on Eliquis and will continue this regimen on 5 mg p.o. twice daily. without difficulty. The patient was seen and evaluated by me on the day of discharge. She reports she is feeling much improved. No significant lower extremity edema. Lung vasquez are clear on exam. Heart is regular, sinus rhythm. Abdomen is soft and nontender. She appears stable for transition to home. Per nursing staff, Cardiology Team yesterday that she would be able to discharge to home today. DISCHARGE MEDICATIONS: 1. Amiodarone 200 mg p.o. twice daily for 1 week, then p.o. once daily, dispensing 60 tablets with no refills. 2. Aspirin 81 mg p.o. once daily. 3. Eliquis 5 mg p.o. b.i.d., dispensing 60 tablets with no refills. 4. Atorvastatin 80 mg p.o. at bedtime, same as admission. 5. Carvedilol 12.5 mg p.o. twice daily, . 6. Clonidine 0.1 mg p.o. daily p.r.n. elevated blood pressure, same as admission. 7. Multivitamin p.o. daily, same as admission. 8. Diovan 40 mg p.o. once daily. 9. . 10. Zolpidem tartrate 10 mg p.o. at bedtime p.r.n. sleep, same as admission. 11. Vitamin D3, 4000 units p.o. once daily, same as admission. 12. Furosemide 80 mg p.o. twice daily, same as admission. 13. Potassium chloride 20 mEq p.o. daily at 9 a.m. and 10 mEq p.o. daily at 1500 hours, same as admission. DIET: Cardiac, heart healthy, low salt. FOLLOWUP: Follow up with Dr. Leblanc in 1 to 2 weeks. The patient to keep log of blood pressures as well as weights to bring with her to the office. Case discussed with the patient and her family. They are eager to go home. Questions answered to their satisfaction. Total time spent on discharge, 45 minutes. Job ID: [id number]
--- NOTE | 2018-06-17 15:35 | EKG ---
Test Reason : Blood Pressure : / mmHG Vent. Rate : 090 BPM Atrial Rate : 441 BPM P-R Int : 000 ms QRS Dur : 162 ms QT Int : 482 ms P-R-T Axes : 000 260 073 degrees QTc Int : 589 ms Ventricular-paced rhythm Biventricular pacemaker detected Abnormal ECG Confirmed by CORINNE MACHUCA ([id number]), newspaper copy editor ABDIRAHMAN HERNANDEZ ([id number]) on 06/17/2018 3:34:45 PM Referred By: SVEN Confirmed By:CORINNE MACHUCA
== END 2018-06-16 17:22 | disposition home or self-care (01) | DRG 291 ==
LOC: ERS 15:28 → OBSVTOIN 16:40 → 2SW 16:40 → 2NO 06-12 08:23
PROVIDERS: ADMIT Internal Medicine; ATTEND Internal Medicine
PROC: 5A2204Z Restoration of Cardiac Rhythm, Single (ICD-10-PCS; principal; 2018-06-15)
PROC: B24BZZ4 Ultrasonography of Heart with Aorta, Transesophageal (ICD-10-PCS; 2018-06-15)
DX: I13.0 Hypertensive heart and chronic kidney disease with heart failure and stage 1 through stage 4 chronic kidney disease, or unspecified chronic kidney disease (principal); I50.23 Acute on chronic systolic (congestive) heart failure; Z68.41 Body mass index [BMI] 40.0-44.9, adult; I24.8 Other forms of acute ischemic heart disease; I48.92 Unspecified atrial flutter; N18.2 Chronic kidney disease, stage 2 (mild); I48.0 Paroxysmal atrial fibrillation; I25.10 Atherosclerotic heart disease of native coronary artery without angina pectoris; I25.5 Ischemic cardiomyopathy; Z95.810 Presence of automatic (implantable) cardiac defibrillator; E66.01 Morbid (severe) obesity due to excess calories; I73.9 Peripheral vascular disease, unspecified; E78.00 Pure hypercholesterolemia, unspecified; I25.2 Old myocardial infarction; Z87.891 Personal history of nicotine dependence
CPT/HCPCS: 36415; 80048; 80061; 80069; 80162; 82553; 83540; 83550; 83735; 84443; 85014; 85018; 85025; 85049; 92960; 93005; 93306; 93312; 93798; 94760; J0282; J1160; J1650; J1940; J2704; J7050; J7070

== ENCOUNTER → 2018-08-16 | Day surgery (SDC) | payer OTHER, MEDICARE ==
[2018-08-16 08:38] LABS: Hemoglobin 12.7 g/dL (12.0-16.0); Mean Corpuscular HGB CONC 32.4 g/dL (32.0-36.0); Mean Corpuscular Hemoglobin 24.5 pg (27.0-31.0); Mean Corpuscular Volume 75.5 fL (78.0-98.0); Platelet Count 194 thou/uL (130-400); RBC Distribution Width 15.3 % (11.5-14.5); Red Blood Cell (RBC) Count 5.21 mill/uL (4.20-5.40); White Blood Cell (WBC) Count 12.4 thou/uL (4.8-10.8)
[2018-08-16 08:49] LABS: INR-International Normal Ratio 1.1; Prothrombin Time 14.1 SEC (12.0-14.7)
[2018-08-16 08:50] LABS: PTT 43.6 SEC (22.9-36.1)
[2018-08-16 10:22] VITALS: BMI 41.8
--- NOTE | 2018-08-24 13:07 | CT ---
CT GUIDED LUNG BIOPSY: Date: 08/24/18 HISTORY: Right lower lobe mass. COMPARISON: CT chest dated 06/11/18. FINDINGS: The patient was brought to the CT suite. All questions were answered. Informed consent was obtained. Timeout performed. The patient's back was prepped and draped in the normal sterile fashion. 1 mg of Versed and 50 mcg of Fentanyl were administered to the patient by the supervising nurse. The superficial and deep soft tissues were anesthetized with 5 mL of buffered lidocaine. Using an 18 gauge BioPince needle, a total of two 12 mm cores were obtained of the mass. The patient tolerated the procedure well and without complication, Pathology confirmed adequacy. No pneumothorax. IMPRESSION: Technically successful CT guided lung mass biopsy. TOTAL SEDATION TIME: 45 minutes. POS: [facility]
== END ==
LOC: CT 08:21
PROVIDERS: ATTEND Internal Medicine Critical Care Medicine
PROC: 0BBF3ZX Excision of Right Lower Lung Lobe, Percutaneous Approach, Diagnostic (ICD-10-PCS; principal; 2018-08-16)
DX: C34.31 Malignant neoplasm of lower lobe, right bronchus or lung (principal); Z87.891 Personal history of nicotine dependence; Z79.899 Other long term (current) drug therapy
CPT/HCPCS: 36415; 85027; 85610; 85730; 88305; 88333; 88341; 88342; 88360

== ENCOUNTER 2018-08-24 12:21 | Day surgery (SDC) | payer OTHER, MEDICARE ==
[2018-08-24 12:45] VITALS: BMI 41.8
[2018-08-24 12:46] VITALS: BP 161/69; TEMP 97.6
--- NOTE | 2018-08-24 14:26 | RAD ---
CHEST THREE VIEWS INSPIRATORY AND EXPIRATORY: History: Lung biopsy. History: CT lung biopsy, same day. FINDINGS: No pneumothorax. Re-visualization of the right upper lobe lung mass. IMPRESSION: No pneumothorax. POS: [facility]
== END 2018-08-24 14:12 | disposition home or self-care (01) ==
LOC: CT 12:21
PROVIDERS: ATTEND Internal Medicine Critical Care Medicine
DX: R91.8 Other nonspecific abnormal finding of lung field (principal); I25.10 Atherosclerotic heart disease of native coronary artery without angina pectoris; I25.2 Old myocardial infarction; I48.91 Unspecified atrial fibrillation; E78.5 Hyperlipidemia, unspecified; Z95.5 Presence of coronary angioplasty implant and graft; Z95.0 Presence of cardiac pacemaker; Z90.710 Acquired absence of both cervix and uterus; Z98.51 Tubal ligation status; Z79.899 Other long term (current) drug therapy
CPT/HCPCS: 32405; 71045; 77012

== ENCOUNTER 2018-09-22 12:22 | Outpatient (CLI) | payer OTHER, MEDICARE ==
--- NOTE | 2018-09-22 15:23 | PET ---
FEXAM: PET/CT HISTORY: Adenocarcinoma of the right lung; initial evaluation for staging TECHNIQUE: PET scanning with CT attenuation correction was performed from the base of the brain to the proximal thighs following the intravenous administration of 11.3 millicuries [id number]. COMPARISON: CT of the thorax dated June 11, 2018 CORRELATION: None FINDINGS: Bilateral distribution:The biodistribution for the exam appears acceptable. Head and neck: There is appropriate background activity within the brain. No hypermetabolic lymphaden opathy or masses identified. There is a 2.8 cm hypodensity within the right thyroid gland. Thorax: The known adenocarcinoma of the right upper lobe demonstrates a peak SUV uptake of 2.5 and a mean uptake of 2.5. No additional hypermetabolic pulmonary nodule is evident. No hypermetabolic pleur al effusion or lymphadenopathy is evident. Abdomen and pelvis: There is expected background activity within the GI and systems. No hypermetab olic mass, lymphadenopathy or ascites is present. There is a stable 2 cm left adrenal adenoma. There is a small hiatal hernia there is a 6 mm nonobstru cting calculus within the superior pole of the right kidney. There are scattered diverticula involvin g the colon. Osseous structures and skin: No hypermetabolic skin or osseous lesion is identified. IMPRESSION: Abnormal PET/CT. 1. There is a hypermetabolic lobulated pulmonary nodule within the right upper lobe, previously biops ied and confirmed as an adenocarcinoma of the right lung. 2. No evidence of hypermetabolic regional or metastatic disease. 3. Large hypodensity within the right thyroid gland. This is poorly characterized. Further evaluation with a thyroid ultrasound is recommended. 4. Left adrenal adenoma 5. Right nephrolithiasis 6. Colonic diverticulosis
== END 2018-09-22 12:23 | disposition home or self-care (01) ==
LOC: PET 12:22
PROVIDERS: ATTEND Radiology Radiation Oncology
DX: C34.11 Malignant neoplasm of upper lobe, right bronchus or lung (principal); N20.0 Calculus of kidney; D35.02 Benign neoplasm of left adrenal gland; K57.30 Diverticulosis of large intestine without perforation or abscess without bleeding
CPT/HCPCS: 78815; A9552

== ENCOUNTER 2019-02-16 12:50 | Day surgery (SDC) | payer OTHER, MEDICARE ==
[2019-02-15 15:07] VITALS: BMI 43.5
[~2019-02-16 12:50] MED LIST: Lidocaine 1% PF 5 ML VIAL ONE; PROPOFOL 200 MG/20 ML VIAL ONE
--- NOTE | 2019-02-16 21:17 | OP ---
DATE OF PROCEDURE: 02/16/2019 PROCEDURE PERFORMED: EGD with biopsy. PREPROCEDURE DIAGNOSES: 1. Intractable abdominal bloating. 2. History of peptic ulcer disease. 3. Abdominal distension and swelling. POSTPROCEDURE DIAGNOSES: 1. Exam to second portion of duodenum. 2. Normal esophagus. 3. Normal-appearing stomach without evidence of gastritis or ulcer, biopsied for GROVER test. 4. Normal duodenum with biopsies obtained in the second portion of the duodenum to evaluate for celiac disease. 5. No ulcer or esophagitis identified. PROCEDURE IN DETAIL: Written informed consent was obtained. The patient was brought to the endoscopy suite. Total intravenous anesthesia was provided by Dr. Garcia and associates. The patient was placed in the left lateral decubitus position. A bite block was inserted into the mouth. A Pentax video diagnostic gastroscope was introduced into the oral cavity and the esophagus was carefully intubated. The gastroscope was advanced under direct visualization to the second portion of the duodenum. Endoscopic findings revealed a grossly normal appearing esophagus with grossly normal-appearing motility. There was no evidence of erosion, ulcer, or hiatal hernia. The stomach was then entered and carefully examined. This included a retroflex view of the cardia and fundus. No obvious gastritis or gastric ulcer was identified. Due to her previous history, a biopsy was obtained in the gastric body and antrum for GROVER test. The duodenum from the bulb to the second portion was then inspected and appeared normal. Random biopsies were obtained in the second portion of the duodenum for histology. The stomach was then decompressed as the endoscope was completely removed from the patient. She was repositioned for the colonoscopy. There were no immediate complications. RECOMMENDATIONS: 1. Await pathology results. 2. Ask patient to call me in one week for pathology results. 3. Resume usual diet but would focus on eliminating high fat foods and spicy foods. 4. Consider a 6-week course of Nexium 40 mg daily and monitor for improvement in bloating. 5. Advised gradual 20 to 25 pounds weight loss over the next 4-6 months. Job ID: [id number] [facility]
--- NOTE | 2019-02-16 21:44 | OP ---
DATE OF PROCEDURE: 02/16/2019 PROCEDURE PERFORMED: Colonoscopy with biopsy and snare polypectomy. PREPROCEDURE DIAGNOSIS: History of colon polyps. POSTPROCEDURE DIAGNOSES: 1. Exam to cecum; good bowel preparation. 2. Mild sigmoid diverticulosis. 3. Two diminutive polyps in the proximal transverse colon, removed by cold biopsy forceps. 4. Submucosal soft nodule, 12 mm in diameter, most consistent with a lipoma, biopsied. 5. A 4-mm sessile polyp in the distal transverse colon, removed by cold snare technique. 6. Diminutive sigmoid polyp, 3 mm in diameter, removed by cold snare technique. 7. Small internal hemorrhoids. 8. Otherwise normal colonoscopy. ANESTHESIA: Total intravenous anesthesia provided by Dr. Juarez. PROCEDURE IN DETAIL: Written informed consent was obtained. Upon completion of the EGD, the patient was repositioned for the colonoscopy. A total intravenous anesthesia was provided by Dr. Juarez. A digital rectal exam was performed that was unremarkable. A Pentax video colonoscope was inserted through the anal canal and advanced under direct visualization to the cecum. Position in the cecum was verified by clear identification of the appendiceal orifice and the ileocecal valve. The quality of the bowel preparation was good. Each colon segment was examined carefully as the colonoscope was slowly withdrawn from the cecum. Vascular pattern and haustral folds appeared normal. In the sigmoid, numerous small and large diverticular orifices were identified. There was no evidence of bleeding. The severity of the diverticulosis was rated as mild. In the proximal transverse colon, two diminutive sessile polyps, each measuring about 2 mm in diameter was removed by cold biopsy forceps. The tissue was submitted to pathology. Also, in the distal ascending colon, a submucosal mass approximately 12 mm in diameter was identified and biopsied. The lesion was soft and pliable when probed with the biopsy forceps. The mass had a yellowish tint to it consistent with a benign lipoma. Biopsies were obtained for histology. Another small sessile polyp about 4 mm in diameter was identified in the distal transverse colon and removed by cold snare technique. This polyp was also retrieved and submitted to pathology. A 3 mm sessile polyp in the sigmoid colon was identified and removed by cold snare technique. The tissue was submitted to pathology. A retroflexed exam of the rectum demonstrated small internal hemorrhoids that were not bleeding. The colon was then decompressed as the colonoscope was removed from the patient. She was transferred to the Day Stay surgery area for postprocedure monitoring. There were no immediate complications. RECOMMENDATIONS: 1. Await pathology results. 2. Ask the patient to call me in one week for pathology results. 3. Repeat colonoscopy in 5 years. 4. Further recommendations as per my EGD report. Job ID: [id number] MTDD
== END 2019-02-16 16:30 | disposition home or self-care (01) ==
LOC: SDC 12:50
PROVIDERS: ATTEND Internal Medicine Gastroenterology
PROC: 0DBL8ZZ Excision of Transverse Colon, Via Natural or Artificial Opening Endoscopic (ICD-10-PCS; principal; 2019-02-16)
PROC: 0DBN8ZZ Excision of Sigmoid Colon, Via Natural or Artificial Opening Endoscopic (ICD-10-PCS; principal; 2019-02-16)
PROC: 0DBK8ZZ Excision of Ascending Colon, Via Natural or Artificial Opening Endoscopic (ICD-10-PCS; principal; 2019-02-16)
PROC: 0DB68ZZ Excision of Stomach, Via Natural or Artificial Opening Endoscopic (ICD-10-PCS; principal; 2019-02-16)
DX: Z12.11 Encounter for screening for malignant neoplasm of colon (principal); D12.3 Benign neoplasm of transverse colon; K63.5 Polyp of colon; K64.8 Other hemorrhoids; K57.30 Diverticulosis of large intestine without perforation or abscess without bleeding; K29.80 Duodenitis without bleeding; R14.0 Abdominal distension (gaseous); I11.0 Hypertensive heart disease with heart failure; I50.9 Heart failure, unspecified; C34.90 Malignant neoplasm of unspecified part of unspecified bronchus or lung; E78.00 Pure hypercholesterolemia, unspecified; Z86.010 Personal history of colon polyps; Z79.899 Other long term (current) drug therapy; Z87.891 Personal history of nicotine dependence; Z95.810 Presence of automatic (implantable) cardiac defibrillator
CPT/HCPCS: 87081; 88305; J2001; J2704

== ENCOUNTER 2019-04-06 12:07 | Outpatient (CLI) | payer OTHER, MEDICARE ==
--- NOTE | 2019-04-06 14:54 | CT ---
CT ABDOMEN AND PELVIS WITH IV CONTRAST: Date: 04/06/19 INDICATINO: Abdominal bloating, abdominal pain. History of lung cancer. Comparison made to noncontrast CT abdomen and pelvis from 04/20/07. Recent CT angio chest from which imaged upper abdomen. FINDINGS: Lung bases appear clear. Liver, spleen, and pancreas appear unremarkable. Stomach and duodenum unremarkable. There are two left adrenal nodules, both of which appear stable when compared to prior studies. The e xhibited low density in 2006 and are consistent with adenomas. Right adrenal unremarkable and stable. Kidneys show numerous low density foci, many of which are subcentimeter and too small to adequately c haracterize. There is a larger cyst in the inferior pole of the right kidney which is stable. There i s a nonobstructing calculus in the upper pole collecting structures of the right kidney measuring martin roximately 1.0 cm, which is unchanged. No hydronephrosis. The ureters are normal caliber. A hyperdens e cyst was seen from the peripheral left renal cortex on prior study from 2006. This lesion appears s table. The urinary bladder is minimally distended and unremarkable. Small bowel loops appear normal. Appendix appears normal. Colon unremarkable. Diverticulosis of left colon. No CT evidence of diverticulitis. Images through the pelvis show evidence of hysterectomy. No osseous abnormality. Aorta is calcified, but remains normal caliber. IMPRESSION: 1. Left adrenal nodules are stable and benign. 2. Numerous low density foci in both kidneys, most of which are subcentimeter and too small to adequ ately characterize. A larger cyst from the inferior pole of the right kidney is stable. 3. Nonobstructing calculus upper pole collecting structures of right kidney is stable. A hyperdense cyst from the lateral left kidney seen on prior study is stable. 4. No acute process identified. POS: OFF
== END 2019-04-06 12:08 | disposition home or self-care (01) ==
LOC: BICCT 12:07
PROVIDERS: ATTEND Physician Assistant Medical
DX: R14.0 Abdominal distension (gaseous) (principal); E27.8 Other specified disorders of adrenal gland; N28.1 Cyst of kidney, acquired; N20.0 Calculus of kidney
CPT/HCPCS: 74177; 82565

== ENCOUNTER 2019-06-27 09:24 | Outpatient (CLI) | payer OTHER, MEDICARE ==
--- NOTE | 2019-06-27 10:24 | CT ---
EXAM: CT Chest W Con PROVIDED CLINICAL HISTORY: Lung cancer COMPARISON: CT chest 06/11/2018, PET/CT 09/22/2018 FINDINGS: The heart, pericardium and great vessels demonstrate an unchanged CT appearance. Small volume pericar dial fluid is redemonstrated. Vascular calcification including coronary calcium is redemonstrated. There is no evidence for thoracic lymph node enlargement. Involving the posterior segment of the right upper lobe in the region of previously described pulmona ry nodule, there is now poorly marginated parenchymal consolidation with peripheral groundglass opacity. No discrete nodule is evident. The lungs appear otherwise free of significant opacity. No pl eural fluid or pneumothorax apparent. The visualized portions of the upper abdomen appear unchanged with respect to prior examinations. Sta ble left adrenal nodule. IMPRESSION: Nonspecific parenchymal consolidation and groundglass opacity involving the posterior segment of the right upper lobe in region of previously described pulmonary nodule, presumably reflecting postradiation change. Evaluation for persistence of underlying nodule is limited given degree of pare nchymal consolidation.
[2019-06-27] MEDS ORDERED: Iopamidol-370 76% 500 ML 1 ML ONE (16:13)
== END 2019-06-27 09:25 | disposition home or self-care (01) ==
LOC: BICCT 09:24
PROVIDERS: ATTEND Radiology Radiation Oncology
DX: C34.11 Malignant neoplasm of upper lobe, right bronchus or lung (principal); R91.8 Other nonspecific abnormal finding of lung field
CPT/HCPCS: 71260; 82565; Q9967

== ENCOUNTER 2020-04-22 14:26 | Outpatient (CLI) | payer OTHER, MEDICARE ==
[~2020-04-22 14:26] MED LIST changes: +Iopamidol 370 76% 100 ML VIAL ONE; -Lidocaine 1% PF 5 ML VIAL ONE; -PROPOFOL 200 MG/20 ML VIAL ONE
--- NOTE | 2020-04-22 15:27 | CT ---
EXAM: CT ABDOMEN AND PELVIS HISTORY: Abdominal distention COMPARISON: 04/06/2019 Procedure: Multiple contiguous axial images were obtained and a CT of the abdomen and pelvis with IV contrast. C oronal reformats were performed. FINDINGS: Lower Chest: within normal limits. Vessels: Atherosclerosis of a nonaneurysmal aorta Heart: Small amount of pericardial fluid. No evidence of cardiomegaly Abdomen: Portal vein:Patent Gallbladder: No calcified gallstones. Normal caliber wall. Liver: within normal limits. Pancreas: within normal limits. Spleen: within normal limits. Adrenals: Appropriate attenuation of the right adrenal gland. There is a 2 separate left adrenal nodu le measuring 1.4 x 1.5 cm and 2.0 x 1.5 cm. Kidneys: Redemonstration of bilateral renal cortical cysts. Symmetric enhancement kidneys. Bilaterall y no obstructive uropathy. Cortically based calcification of the upper pole of the right kidney. Peritoneum: No ascites or free air, no fluid collection. Bowel: Gastric mucosa, duodenum and small bowel loops have the overall normal caliber. No obvious muc osal abnormality. Normal ileocecal junction. Caliber appendix. Contrast and fecal material in a nondistended, nondilated colon. Diverticulosis. No evidence of diverticulitis. Mucosal thickening of the sigmoid colon may in part be due to inadequate distention. Mesentery and Retroperitoneum: No enlarged mesenteric or retroperitoneal lymph nodes. Abdominal Wall: Small umbilical hernia containing mesenteric fat Pelvis: Reproductive Organs: Surgically absent uterus Pelvis: No mass, lymphadenopathy, free air or free fluid. Bladder: Mild urinary bladder mucosal prominence likely due to inadequate distention. Bones: No lytic or blastic lesions in the osseous structures IMPRESSION: 1. 2 separate left adrenal nodules. Nodules have been previously proven to be adenomas. 2. Redemonstration of bilateral renal cortical and parapelvic cysts. No evidence of obstructive uropa thy 3. Normal caliber appendix. 4. Diverticulosis, without evidence of diverticulitis.
== END 2020-04-22 14:27 | disposition home or self-care (01) ==
LOC: BICCT 14:26
PROVIDERS: ATTEND Physician Assistant Medical
DX: R14.0 Abdominal distension (gaseous) (principal); E27.9 Disorder of adrenal gland, unspecified; N28.1 Cyst of kidney, acquired; K57.90 Diverticulosis of intestine, part unspecified, without perforation or abscess without bleeding; Z87.19 Personal history of other diseases of the digestive system
CPT/HCPCS: 74177; 82565; Q9967

== ENCOUNTER 2020-12-10 09:45 | Outpatient (CLI) | payer MEDICARE | END 2020-12-10 09:46 | disposition home or self-care (01) | LOC: BICMAMMO 09:45 | PROVIDERS: ATTEND Family Medicine | DX: Z12.31 Encounter for screening mammogram for malignant neoplasm of breast (principal) | CPT/HCPCS: 77063; 77067 ==

== ENCOUNTER 2021-05-28 19:58 | Observation (INO) | payer MEDICARE ==
[2021-05-28 20:36] VITALS: BMI 40.5
[2021-05-28] MEDS ORDERED: Famotidine 20 MG TAB PO SCH (21:00)
[2021-05-28] MEDS ORDERED: HYDROcodone/Acetaminophen 7.5/325 mg Tablet PO PRN (21:08)
[2021-05-28] MEDS ORDERED: Ondansetron PF 4 MG/2 ML Vial IVP PRN (21:08)
[2021-05-28] MEDS ORDERED: HYDROcodone/Acetaminophen 5/325 mg Tablet PO PRN (21:08)
[2021-05-28] MEDS ORDERED: Acetaminophen 325 MG TAB PO PRN (21:08)
[2021-05-28] MEDS ORDERED: Senokot S 8.6-50 MG TAB PO PRN (21:08)
[2021-05-28] MEDS ORDERED: Bisacodyl 5 MG TAB PO PRN (21:08)
[2021-05-28] MEDS ORDERED: Sodium Chloride 0.9% 1,000 ML IV SCH (21:15)
[2021-05-28] MEDS ORDERED: Labetalol HCl 100 MG/20 ML VIAL SLOW IVP PRN (21:28)
[2021-05-28] MEDS ORDERED: Nitroglycerin 0.4 MG TAB (25 Tab Bottle) SL PRN (21:28)
[2021-05-28] MEDS ORDERED: Melatonin 3 MG TAB PO PRN (21:28)
[2021-05-28] MEDS ORDERED: Dextrose 5% in Water 1,000 ML IV PRN (21:32)
[2021-05-28] MEDS ORDERED: HumaLOG 300 UNITS/3 ML VIAL SC PRN ×2 (21:32)
[2021-05-28] MEDS ORDERED: Dextrose 50% Abboject 50 ML SYRINGE SLOW IVP PRN (21:32)
[2021-05-28] MEDS ORDERED: Electrolyte Replacement Protocol 1 EACH FS SCH (22:15)
[2021-05-28] MEDS: Carvedilol 6.25 MG TAB PO SCH (22:27)
[2021-05-28] MEDS: Heparin 5,000 UNITS/ML VIAL SC SCH (22:27)
[2021-05-28 23:17] LABS: Troponin I 0.042 ng/mL (< 0.028)
[2021-05-29 01:38] LABS: Troponin I 0.054 ng/mL (< 0.028)
[2021-05-29 06:23] LABS: #Basophils 0.1 thou/uL (0.0-0.2); #Eosinphils 0.2 thou/uL (0.0-0.7); #Lymphocytes 2.3 thou/uL (1.20-3.40); #Monocytes 0.8 thou/uL (0.11-0.59); #Neutrophils 6.3 thou/uL (1.40-6.50); %Basophils 0.9 % (0.0-1.0); %Eosinophils 2.1 % (0.0-10.0); %Lymphocytes 23.9 % (21.0-51.0); %Monocytes 7.8 % (0.0-10.0); %Neutrophils 65.3 % (42.0-75.0); Mean Corpuscular HGB CONC 33.5 g/dL (32.0-36.0); Mean Corpuscular Volume 74.7 fL (78.0-98.0); Mean Platelet Volume 10.9 fL (7.4-10.4); Platelet Count 187 thou/uL (130-400); RBC Distribution Width 16.5 % (11.5-14.5); White Blood Cell (WBC) Count 9.7 thou/uL (4.8-10.8)
[2021-05-29 06:24] LABS: ALT (SGPT) 9 U/L (8-55); AST (SGOT) 16 U/L (5-34); Albumin 3.6 g/dL (3.4-4.8); Alkaline Phosphatase 72 U/L (40-110); Anion Gap 15 mmol/L (10-20); BUN (Urea Nitrogen) 42 mg/dL (9.8-20.1); Bilirubin, Total 0.4 mg/dL (0.2-1.2); Calc. Creatinine Clearance 48 mL/min (70-130); Calcium 9.5 mg/dL (7.8-10.44); Carbon Dioxide 29 mmol/L (23-31); Chloride 99 mmol/L (98-107); Globulin 3.4 g/dL (2.4-3.5); Glucose 134 mg/dL (83-110); Potassium 3.1 mmol/L (3.5-5.1); Sodium 140 mmol/L (136-145)
[2021-05-29] MEDS ORDERED: Potassium Chloride 20 MEQ TAB PO SCH ×2 (07:00→08:45)
[2021-05-29] MEDS: Heparin 5,000 UNITS/ML VIAL SC SCH (08:57)
[2021-05-29] MEDS ORDERED: Clopidogrel Bisulfate 75 MG TAB PO SCH (09:00)
[2021-05-29] MEDS ORDERED: Lantus 1000 UNITS/10 ML VIAL SC SCH (09:00)
[2021-05-29] MEDS: Carvedilol 6.25 MG TAB PO SCH (11:23)
[2021-05-29 13:21] LABS: Potassium 3.3 mmol/L (3.5-5.1)
[2021-05-29 16:08] VITALS: BP 130/57; TEMP 97.7
[2021-05-29] MEDS ORDERED: Apixaban 5 MG TAB PO SCH (21:00)
[2021-05-29] MEDS ORDERED: Atorvastatin Calcium 40 MG TAB PO SCH (21:00)
[2021-05-29] MEDS ORDERED: Enoxaparin Sodium 100 MG/ML SYRINGE SC SCH (21:00)
== END 2021-05-29 16:30 | disposition home or self-care (01) ==
LOC: 2SW 20:07
PROVIDERS: ADMIT Family Medicine; ATTEND Internal Medicine
DX: R00.2 Palpitations (principal); E11.9 Type 2 diabetes mellitus without complications; I11.0 Hypertensive heart disease with heart failure; I50.9 Heart failure, unspecified; I48.91 Unspecified atrial fibrillation; I25.10 Atherosclerotic heart disease of native coronary artery without angina pectoris; E87.6 Hypokalemia; N17.9 Acute kidney failure, unspecified; Z20.822 Contact with and (suspected) exposure to COVID-19; Z79.02 Long term (current) use of antithrombotics/antiplatelets; Z79.4 Long term (current) use of insulin; Z79.82 Long term (current) use of aspirin; Z79.899 Other long term (current) drug therapy
CPT/HCPCS: 36415; 36416; 80053; 84484; 85025; 93306; 96372; G0378; J1644; J1815; J7050

== ENCOUNTER 2022-05-22 22:26 | Inpatient (IN) | payer MEDICARE ==
[2022-05-22] MEDS ORDERED: Aspirin Chewable 81 MG TAB ONE (23:54)
[2022-05-22] MEDS ORDERED: Enoxaparin Sodium 100 MG/ML SYRINGE ONE (23:54)
[2022-05-23] MEDS ORDERED: Ondansetron PF 4 MG/2 ML Vial IVP PRN (00:15)
[2022-05-23] MEDS ORDERED: Ondansetron ODT 4 MG TAB SL PRN (00:15)
[2022-05-23] MEDS ORDERED: Acetaminophen 325 MG TAB PO PRN (00:15)
[2022-05-23] MEDS ORDERED: HumaLOG 300 UNITS/3 ML VIAL SC PRN ×2 (02:21)
[2022-05-23] MEDS ORDERED: Dextrose 50% Abboject 50 ML SYRINGE SLOW IVP PRN (02:21)
[2022-05-23] MEDS ORDERED: Dextrose 5% in Water 1,000 ML IV PRN (02:21)
[2022-05-23 02:47] LABS: Analyzer IN Cardio ER; Base Excess (BEa) -6.2 mEq/L (-2.0 to +3.0); CO2 Tension 42.6 mmHg (35.0-45.0); Calcium, Ionized (arterial) 1.17 mmol/L (1.12-1.30); Carboxyhemoglobin (COHb) 0.3 gm% (0.0-3.0); Hemoglobin (Hb) 11.5 g/dL (12.0-16.0); O2 Tension (PaO2), arterial 218.4 mmHg (> 70.0); Potassium - ABG Lab 5.41 mmol/L (3.70-5.30); pH, Arterial 7.29 (7.35-7.45)
[2022-05-23 03:03] LABS: Troponin I 0.137 ng/mL (< 0.028)
[2022-05-23 05:11] LABS: Anion Gap 15 mmol/L (10-20); BUN (Urea Nitrogen) 38 mg/dL (9.8-20.1); Calc. Creatinine Clearance 0 mL/min (70-130); Calcium 9.1 mg/dL (7.8-10.44); Carbon Dioxide 20 mmol/L (23-31); Chloride 108 mmol/L (98-107); Estimated GFR 27; Glucose 103 mg/dL (83-110); Potassium 5.2 mmol/L (3.5-5.1); Sodium 138 mmol/L (136-145)
[2022-05-23 05:35] LABS: #Basophils 0.1 thou/uL (0.0-0.2); #Eosinphils 0.1 thou/uL (0.0-0.7); #Lymphocytes 2.3 thou/uL (1.20-3.40); #Monocytes 0.9 thou/uL (0.11-0.59); #Neutrophils 10.5 thou/uL (1.40-6.50); %Basophils 0.4 % (0.0-1.0); %Eosinophils 0.4 % (0.0-10.0); %Lymphocytes 16.4 % (21.0-51.0); %Monocytes 6.4 % (0.0-10.0); %Neutrophils 76.4 % (42.0-75.0); Anisocytosis SLIGHT = 6-15 cells (100X) (0-5/hpf); Hemoglobin 10.8 g/dL (12.0-16.0); MDiff Complete? YES; Mean Corpuscular HGB CONC 32.4 g/dL (32.0-36.0); Mean Corpuscular Hemoglobin 23.5 pg (27.0-31.0); Mean Corpuscular Volume 72.6 fl (78.0-98.0); Mean Platelet Volume 9.8 fL (7.4-10.4); Microcytosis SLIGHT = 6-15 cells (100X) (0-5/hpf); Platelet Count 192 10x3/uL (130-400); RBC Distribution Width 17.2 % (11.5-14.5); Red Blood Cell (RBC) Count 4.57 mill/uL (4.20-5.40); White Blood Cell (WBC) Count 13.7 10x3/uL (4.8-10.8)
[2022-05-23] MEDS ORDERED: Furosemide 20 MG/2 ML VIAL ONE ×2 (05:46→14:07)
[2022-05-23] MEDS ORDERED: Furosemide 40 MG/4 ML VIAL SLOW IVP SCH (06:00)
[2022-05-23] MEDS: Furosemide 20 MG/2 ML VIAL SLOW IVP SCH ×2 (06:37→14:06)
[2022-05-23] MEDS ORDERED: Carvedilol 6.25 MG TAB PO SCH (08:00)
[2022-05-23] MEDS ORDERED: Apixaban 5 MG TAB PO SCH (09:00)
[2022-05-23 14:06] LABS: Anion Gap 15 mmol/L (10-20); BUN (Urea Nitrogen) 39 mg/dL (9.8-20.1); Calc. Creatinine Clearance 46 mL/min (70-130); Calcium 9.3 mg/dL (7.8-10.44); Carbon Dioxide 25 mmol/L (23-31); Chloride 106 mmol/L (98-107); Estimated GFR 28; Glucose 81 mg/dL (83-110); Magnesium 2.4 mg/dL (1.6-2.6); Potassium 4.6 mmol/L (3.5-5.1); Sodium 141 mmol/L (136-145)
[2022-05-23] MEDS: Apixaban 5 MG TAB PO SCH (21:37)
[2022-05-23] MEDS: Carvedilol 25 MG TAB PO SCH (21:37)
[2022-05-23] MEDS: Atorvastatin Calcium 40 MG TAB PO SCH (21:37)
[2022-05-23 23:30] VITALS: BMI 41.6
[2022-05-24 05:23] LABS: #Eosinphils 0.4 thou/uL (0.0-0.7); #Lymphocytes 2.7 thou/uL (1.20-3.40); #Monocytes 0.8 thou/uL (0.11-0.59); #Neutrophils 7.9 thou/uL (1.40-6.50); %Basophils 0.4 % (0.0-1.0); %Eosinophils 3.4 % (0.0-10.0); %Lymphocytes 22.7 % (21.0-51.0); %Monocytes 6.8 % (0.0-10.0); %Neutrophils 66.8 % (42.0-75.0); Hemoglobin 10.8 g/dL (12.0-16.0); Mean Corpuscular Hemoglobin 23.3 pg (27.0-31.0); Mean Corpuscular Volume 72.6 fl (78.0-98.0); Mean Platelet Volume 8.1 fL (7.4-10.4); Platelet Count 201 10x3/uL (130-400); RBC Distribution Width 17.3 % (11.5-14.5); Red Blood Cell (RBC) Count 4.65 mill/uL (4.20-5.40); White Blood Cell (WBC) Count 11.9 10x3/uL (4.8-10.8)
[2022-05-24] MEDS: Furosemide 20 MG/2 ML VIAL SLOW IVP SCH ×2 (05:28→13:22)
[2022-05-24 05:34] LABS: Anion Gap 14 mmol/L (10-20); BUN (Urea Nitrogen) 41 mg/dL (9.8-20.1); Calc. Creatinine Clearance 43 mL/min (70-130); Calcium 9.3 mg/dL (7.8-10.44); Carbon Dioxide 23 mmol/L (23-31); Chloride 104 mmol/L (98-107); Estimated GFR 28; Glucose 86 mg/dL (83-110); Potassium 4.3 mmol/L (3.5-5.1); Sodium 137 mmol/L (136-145)
[2022-05-24] MEDS: Carvedilol 25 MG TAB PO SCH ×2 (09:26→20:17)
[2022-05-24] MEDS: Ascorbic Acid 500 mg Chewable Tablet PO SCH (09:26)
[2022-05-24] MEDS: Apixaban 5 MG TAB PO SCH ×2 (09:26→20:17)
[2022-05-24] MEDS: Aspirin 81 mg Enteric Coated Tablet PO SCH (09:26)
[2022-05-24] MEDS: Atorvastatin Calcium 40 MG TAB PO SCH (20:17)
[2022-05-25] MEDS: Acetaminophen 325 MG TAB PO PRN ×2 (04:28→09:12)
[2022-05-25 05:04] LABS: #Basophils 0.1 thou/uL (0.0-0.2); #Eosinphils 0.2 thou/uL (0.0-0.7); #Lymphocytes 2.3 thou/uL (1.20-3.40); #Monocytes 0.9 thou/uL (0.11-0.59); #Neutrophils 9.9 thou/uL (1.40-6.50); %Basophils 0.5 % (0.0-1.0); %Eosinophils 1.5 % (0.0-10.0); %Monocytes 6.6 % (0.0-10.0); %Neutrophils 74.3 % (42.0-75.0); Hemoglobin 10.1 g/dL (12.0-16.0); Mean Corpuscular HGB CONC 32.9 g/dL (32.0-36.0); Mean Corpuscular Hemoglobin 23.7 pg (27.0-31.0); Mean Platelet Volume 7.5 fL (7.4-10.4); Platelet Count 185 10x3/uL (130-400); RBC Distribution Width 17.1 % (11.5-14.5); Red Blood Cell (RBC) Count 4.27 mill/uL (4.20-5.40); White Blood Cell (WBC) Count 13.4 10x3/uL (4.8-10.8)
[2022-05-25 05:25] LABS: Anion Gap 14 mmol/L (10-20); BUN (Urea Nitrogen) 46 mg/dL (9.8-20.1); Calc. Creatinine Clearance 40 mL/min (70-130); Calcium 9.2 mg/dL (7.8-10.44); Carbon Dioxide 26 mmol/L (23-31); Chloride 104 mmol/L (98-107); Estimated GFR 25; Glucose 133 mg/dL (83-110); Magnesium 2.3 mg/dL (1.6-2.6); Sodium 140 mmol/L (136-145)
[2022-05-25] MEDS ORDERED: Torsemide 20 MG TAB PO SCH (09:00)
[2022-05-25] MEDS: Ascorbic Acid 500 mg Chewable Tablet PO SCH (09:09)
[2022-05-25] MEDS: Apixaban 5 MG TAB PO SCH (09:09)
[2022-05-25] MEDS: Aspirin 81 mg Enteric Coated Tablet PO SCH (09:09)
[2022-05-25] MEDS: Carvedilol 25 MG TAB PO SCH (09:09)
[2022-05-25 12:18] VITALS: BP 126/57; TEMP 97.6
== END 2022-05-25 13:15 | disposition home or self-care (01) | DRG 280 ==
LOC: ERS 22:26 → ERHOLD 05-23 02:04 → 2NO 05-23 23:37
PROVIDERS: ADMIT Internal Medicine; ATTEND Internal Medicine
DX: I13.0 Hypertensive heart and chronic kidney disease with heart failure and stage 1 through stage 4 chronic kidney disease, or unspecified chronic kidney disease (principal); I50.33 Acute on chronic diastolic (congestive) heart failure; I21.A1 Myocardial infarction type 2; J96.01 Acute respiratory failure with hypoxia; N17.9 Acute kidney failure, unspecified; N18.4 Chronic kidney disease, stage 4 (severe); E87.20 Acidosis, unspecified; Z68.41 Body mass index [BMI] 40.0-44.9, adult; I42.0 Dilated cardiomyopathy; R91.8 Other nonspecific abnormal finding of lung field; E87.5 Hyperkalemia; D50.9 Iron deficiency anemia, unspecified; E11.22 Type 2 diabetes mellitus with diabetic chronic kidney disease; E11.51 Type 2 diabetes mellitus with diabetic peripheral angiopathy without gangrene; I48.0 Paroxysmal atrial fibrillation; M10.9 Gout, unspecified; E66.9 Obesity, unspecified; I25.10 Atherosclerotic heart disease of native coronary artery without angina pectoris; Z95.810 Presence of automatic (implantable) cardiac defibrillator; Z79.899 Other long term (current) drug therapy; Z79.4 Long term (current) use of insulin; Z79.82 Long term (current) use of aspirin; Z86.19 Personal history of other infectious and parasitic diseases; Z87.891 Personal history of nicotine dependence; Z98.51 Tubal ligation status; Z90.710 Acquired absence of both cervix and uterus; Z98.42 Cataract extraction status, left eye; Z98.41 Cataract extraction status, right eye
CPT/HCPCS: 36415; 36416; 71250; 80048; 82553; 82805; 83735; 84145; 84484; 85025; 93005; 93306; 94660; J1650; J1940

== ENCOUNTER 2022-07-07 10:48 | Outpatient (CLI) | payer MEDICARE | END 2022-07-07 10:49 | disposition home or self-care (01) | LOC: BICMAMMO 10:48 | PROVIDERS: ATTEND Family Medicine | DX: Z12.31 Encounter for screening mammogram for malignant neoplasm of breast (principal) | CPT/HCPCS: 77063; 77067 ==

== ENCOUNTER 2023-02-04 13:02 | Outpatient (CLI) | payer MEDICARE | END 2023-02-04 13:03 | disposition home or self-care (01) | LOC: RAD 13:02 | PROVIDERS: ATTEND Internal Medicine Critical Care Medicine | DX: R06.00 Dyspnea, unspecified (principal); J98.4 Other disorders of lung | CPT/HCPCS: 71046 ==

== ENCOUNTER 2024-06-16 10:52 | Outpatient (CLI) | payer MEDICARE | END 2024-06-16 10:53 | disposition home or self-care (01) | LOC: BICMAMMO 10:52 | PROVIDERS: ATTEND Family Medicine | DX: Z13.820 Encounter for screening for osteoporosis (principal); M81.0 Age-related osteoporosis without current pathological fracture; M85.88 Other specified disorders of bone density and structure, other site; Z78.0 Asymptomatic menopausal state | CPT/HCPCS: 77080 ==

== ENCOUNTER 2024-07-31 13:13 | Outpatient (CLI) | payer MEDICARE | END 2024-07-31 13:14 | disposition home or self-care (01) | LOC: RAD 13:13 | PROVIDERS: ATTEND Internal Medicine Critical Care Medicine | DX: R06.00 Dyspnea, unspecified (principal) | CPT/HCPCS: 71046 ==

== ENCOUNTER 2025-01-30 10:18 | Outpatient (CLI) | payer MEDICARE | END 2025-01-30 10:19 | disposition home or self-care (01) | LOC: BICMAMMO 10:18 | PROVIDERS: ATTEND Family Medicine | DX: Z12.31 Encounter for screening mammogram for malignant neoplasm of breast (principal); N64.89 Other specified disorders of breast | CPT/HCPCS: 77063; 77067 ==

== ENCOUNTER 2025-01-30 11:09 | Outpatient (CLI) | payer MEDICARE | END 2025-01-30 11:10 | disposition home or self-care (01) | LOC: RAD 11:09 | PROVIDERS: ATTEND Internal Medicine Critical Care Medicine | DX: R06.00 Dyspnea, unspecified (principal); J98.4 Other disorders of lung; M47.819 Spondylosis without myelopathy or radiculopathy, site unspecified; Z95.810 Presence of automatic (implantable) cardiac defibrillator | CPT/HCPCS: 71046 ==

== ENCOUNTER 2025-05-11 14:04 | Observation (INO) | payer MEDICARE ==
[2025-05-11 14:26] VITALS: BMI 40.2
[2025-05-11] MEDS: FLU (Fluad Triv) 25-26 (65UP)PF 45 MCG/0.5 ML Syringe IM ONE (15:30)
[2025-05-11] MEDS ORDERED: Dextrose 50% Abboject 50 ML SYRINGE SLOW IVP PRN (16:03)
[2025-05-11] MEDS ORDERED: Glucagon 1 MG/ML KIT IM PRN (16:03)
[2025-05-11 16:51] LABS: #Basophils Less than 0.03 10x3/uL (0.0-0.2); #Eosinophils Less than 0.03 10x3/uL (0.0-0.7); #Monocytes 0.58 10x3/uL (0.11-0.59); #Neutrophils 14.49 10x3/uL (1.40-6.50); %Basophils 0.1 % (0.0-1.0); %Eosinophils 0.0 % (0.0-10.0); %Lymphocytes 5.3 % (21.0-51.0); %Monocytes 3.6 % (0.0-10.0); %Neutrophils 90.1 % (42.0-75.0); Hematocrit 33.4 % (36.0-47.0); Hemoglobin 10.6 g/dL (12.0-16.0); Mean Corpuscular Hemoglobin 21.9 pg (27.0-31.0); Mean Corpuscular Volume 69.0 fL (78.0-98.0); Platelet Count 233 10x3/uL (130-400); Red Blood Cell (RBC) Count 4.84 mill/uL (4.20-5.40); White Blood Cell (WBC) Count 16.08 10x3/uL (4.8-10.8)
[2025-05-11] MEDS: Carvedilol 25 MG TAB PO SCH (17:06)
[2025-05-11 17:11] LABS: Anion Gap 18 mmol/L (10-20); BUN (Urea Nitrogen) 61 mg/dL (9.8-20.1); Calc. Creatinine Clearance 32 mL/min (70-130); Calcium 9.0 mg/dL (7.8-10.44); Carbon Dioxide 25 mmol/L (23-31); Chloride 101 mmol/L (98-107); Glucose 263 mg/dL (83-110); Potassium 4.8 mmol/L (3.5-5.1); Sodium 139 mmol/L (136-145)
[2025-05-11] MEDS: Apixaban 5 MG TAB PO SCH (20:36)
[2025-05-11] MEDS ORDERED: Melatonin 3 MG TAB PO PRN (21:18)
[2025-05-11] MEDS: diphenhydrAMINE 25 MG CAP PO SCH (22:29)
[2025-05-12] MEDS: Aspirin 81 mg Enteric Coated Tablet PO SCH (08:44)
[2025-05-12] MEDS: Spironolactone 25 MG TAB PO SCH (08:44)
[2025-05-12] MEDS: Torsemide 20 MG TAB PO SCH (08:44)
[2025-05-12] MEDS: HYDROcodone/Acetaminophen 5/325 mg Tablet PO PRN (10:20)
[2025-05-12 12:32] VITALS: BP 151/67; TEMP 98.9
== END 2025-05-12 15:00 | disposition home or self-care (01) ==
LOC: 2NO 14:04 → INTOOBSV 14:04
PROVIDERS: ADMIT Internal Medicine; ATTEND Internal Medicine
DX: R07.9 Chest pain, unspecified (principal); I13.0 Hypertensive heart and chronic kidney disease with heart failure and stage 1 through stage 4 chronic kidney disease, or unspecified chronic kidney disease; E11.22 Type 2 diabetes mellitus with diabetic chronic kidney disease; N18.30 Chronic kidney disease, stage 3 unspecified; I50.9 Heart failure, unspecified; I25.10 Atherosclerotic heart disease of native coronary artery without angina pectoris; I48.91 Unspecified atrial fibrillation; E78.5 Hyperlipidemia, unspecified; Z79.82 Long term (current) use of aspirin; Z79.01 Long term (current) use of anticoagulants; Z79.4 Long term (current) use of insulin; Z79.899 Other long term (current) drug therapy
CPT/HCPCS: 71250; 80048; 82962 ×2; 84484; 85025; 85379; 94760 ×2; J1815; 36415; 36416; G0378